=== PATIENT | male | born 1985 | race Caucasian/White ===

== ENCOUNTER 2022-11-24 13:34 | Emergency (ER) | payer MEDICAID, SELFPAY ==
[2022-11-24 13:45] VITALS: BP 134/85; PULSE 88; RESP 18; TEMP 37.1; O2SAT 100; BMI 32.3
--- NOTE | 2022-11-24 13:58 | EXP.UTC ---
Discharge Plan Disposition Patient Disposition: Home, Self-Care Condition: Good Prescriptions Prescriptions: New benzonatate [benzonatate] 100 mg capsule 100 mg PO TIDP PRN (Reason: Cough) Qty: 30 0RF ondansetron 4 mg Tablet,Disintegrating 4 mg PO Q8H PRN (Reason: Nausea) Qty: 12 0RF No Action buprenorphine-naloxone [Suboxone] 8-2 mg Tablet, Sublingual 2 tab SUBLINGUAL DAILY Mavyret 100-40 mg Tablet See Rx Instructions .ROUTE .COMPLEX Rx Instructions: 3 tab orally ;3 tabs daily for 8 weeks Referrals Follow up/Referrals: Provider,Referral, MD [Primary Care Provider] - See instructions Activity Restrictions/Add. Instructions Additional Instructions/Restrictions: Drink plenty of fluids. Take tylenol or ibuprofen for pain or fever. Take the medications as directed. Follow up with your regular doctor. GO TO THE ER FOR ANY WORSENING SYMPTOMS Clinical Impressions Clinical Impression: Acute viral syndrome Instructions Patient Instructions: Coronavirus Disease 2019, Preventing the Spread of Coronavirus Discharge Instructions Discharge ED Provider: Abe Wetzel [facility] General Stated complaint: congestion,headache,achey Time Seen by Provider: 11/24/22 13:58 History of Present Illness Provider Complaint: He states that for the past 2 days he has had chills, fever, malaise and congestion. Related Data Home Medications Medication Instructions Recorded Confirmed buprenorphine 8 mg-naloxone 2 mg 2 tab sublingual DAILY substance 11/24/22 11/24/22 sublingual tablet dependency glecaprevir 100 mg-pibrentasvir 40 See Rx Instructions .Route 11/24/22 11/24/22 mg tablet (Mavyret) .COMPLEX hep c treatment Previous Rx's Medication Instructions Recorded benzonatate 100 mg capsule 100 mg PO TIDP PRN Cough #30 caps 11/24/22 ondansetron 4 mg disintegrating 4 mg PO Q8H PRN Nausea #12 tabs 11/24/22 tablet Allergies Allergy/AdvReac Type Severity Reaction Status Date / Time No Known Allergies Allergy Verified 11/24/22 13:56 [facility] Disclaimer: The information contained in this section may have been updated after the patient was seen, as this information can be updated by other users. Social History Smoking Status: Never smoker alcohol intake: never current occupational status: unemployed Travel in the last 8 weeks: None ROS Obtained: Yes All systems reviewed & no additional complaints except as documented Constitutional Constitutional: Reports chills and Reports fever(s) Eyes Eyes: Denies eye discharge ENT Ears, Nose, Mouth, and Throat: Reports as per HPI Cardiovascular Cardiovascular: Denies chest pain Respiratory Respiratory: Denies chest congestion and Reports cough Gastrointestinal Gastrointestingal: Reports nausea; Denies abdominal pain, constipation, cramping, diarrhea or vomiting Musculoskeletal Musculoskeletal: Denies arthralgias Integumentary/Breasts Skin/Breast: Denies rash Neurologic Neurologic: Denies paresthesias Physical Exam General General appearance: alert and in no apparent distress Head Head exam: atraumatic, normocephalic and normal inspection Eye Eye exam: Present normal appearance, PERRL and EOMI ENT ENT exam: Present normal exam, normal oropharynx, mucous membranes moist, TM's normal bilaterally and normal external ear exam Neck Neck exam: Present normal inspection, full ROM and trachea midline; Absent meningismus or lymphadenopathy Chest Chest inspection: Present normal inspection and symmetric chest wall rise; Absent tenderness Respiratory Respiratory exam: Present normal lung sounds bilaterally; Absent respiratory distress Cardiovascular Cardiovascular exam: Present regular rate and normal rhythm; Absent JVD Abdominal Exam Abdominal exam: Present soft and normal bowel sounds; Absent distention, tenderness or guarding Extremities Exam Extremities exam: Present normal inspection, full ROM and normal capil
[2022-11-24 14:05] LABS: UTC Influenza A Antigen Negative (Negative)
[2022-11-24 14:06] LABS: UTC Influenza B Antigen Negative (Negative)
[2022-11-24 14:33] VITALS: BP 134/85; PULSE 88; RESP 18; TEMP 37.1; O2SAT 100
== END 2022-11-24 14:33 | disposition home or self-care (01) ==
PROVIDERS: Emergency Provider Nurse Practitioner Family
DX: U07.1 COVID-19 (principal); R50.9 Fever, unspecified; R53.81 Other malaise
CPT/HCPCS: 87804; 99204; 99212; G0463

== ENCOUNTER 2023-08-22 20:25 | Emergency (ER) | payer MEDICAID, SELFPAY ==
[2023-08-22 20:27] VITALS: BP 153/96; PULSE 124; RESP 20; TEMP 36.9; O2SAT 96; BMI 30.7
--- NOTE | 2023-08-22 20:50 | ECG_ITS ---
APPROVED REPORT Exam: Resting ECG HR:96 bpm ECG Measurements Heart Rate 96 AXES DC 157 P 67 QRSd 86 QRS 25 QT 326 T 39 QTc 379 Conclusion SINUS RHYTHM POSSIBLE LEFT ATRIAL ENLARGEMENT [-0.1mV P-WAVE IN V1/V2] LOW QRS VOLTAGE IN PRECORDIAL LEADS [QRS DEFLECTION < 1.0 mV IN CHEST LEADS] Electronically signed by : JOE FRAGOSO, 08/22/2023 22:52:39
--- NOTE | 2023-08-22 20:56 | HMH.EDGENADL ---
Discharge Plan Disposition Patient Disposition: Home, Self-Care Prescriptions Prescriptions: New clonidine HCl 0.1 mg tablet 0.1 mg PO Q8H PRN (Reason: withdrawal symptoms) Qty: 14 0RF ondansetron 4 mg tablet,disintegrating 4 mg PO Q8H PRN (Reason: nausea and vomiting) 4 Days Qty: 12 0RF naproxen 500 mg tablet 500 mg PO BID Qty: 20 0RF hydroxyzine HCl 25 mg tablet 25 mg PO Q8H PRN (Reason: anxiety) Qty: 12 0RF No Action buprenorphine-naloxone [Suboxone] 8-2 mg Tablet, Sublingual 2 tab SUBLINGUAL DAILY Mavyret 100-40 mg Tablet See Rx Instructions .ROUTE .COMPLEX Rx Instructions: 3 tab orally ;3 tabs daily for 8 weeks benzonatate [benzonatate] 100 mg capsule 100 mg PO TIDP PRN (Reason: Cough) Qty: 30 0RF ondansetron 4 mg Tablet,Disintegrating 4 mg PO Q8H PRN (Reason: Nausea) Qty: 12 0RF Referrals Follow up/Referrals: Provider,Referral, MD [Primary Care Provider] - See instructions Activity Restrictions/Add. Instructions Additional Instructions/Restrictions: You were evaluated in the ER today. Please spanish moss picker your prescriptions at the pharmacy and take them as needed for symptoms. You may also take Tylenol every 4-6 hours as needed for pain and bodyaches. Follow-up closely with primary care. Follow-up using the resources provided to you as well. Return to the emergency department for new or worsening symptoms. Clinical Impressions Clinical Impression: Opioid withdrawal Instructions Patient Instructions: DI for Drug or Alcohol Withdrawal Discharge ED Provider: Teresita Martinez General Adult HPI General Chief complaint: PAIN Stated complaint: possible withdrawl Time Seen by Provider: 08/22/23 20:31 Mode of Arrival: Ambulatory Source of Information: Patient Limitations: No Limitations Description of Symptoms (Recalled from ER Triage Doc. by RN): Pt. presented to ED with c/o withdrawl from Suboxone. Pt. states he has been on it fro 10 years. He quit 2 weeks ago cold turkey. Pt. states that he is not sleeping, not eatinf, vomiting. C/o feeling sore all over. and can't do this by himself. History of Present Illness HPI narrative: This patient is a 37-year-old male with a history of opioid dependence previously on Suboxone for 10 years presenting with concern for withdrawals from Suboxone. He states that he missed his appointment 2 weeks ago, and he decided to quit cold turkey because it was too difficult to maintain his appointments and he felt like it was controlling his life. He does not wish to be dependent on opioid medications anymore, but he has not been able to sleep, he had nausea and vomiting with poor appetite, and he has had generalized bodyaches that have made his symptoms too difficult to manage at home on his own. He comes in asking for help with medications to get him relief, but he does not want any further treatment with opioid medication such as Suboxone. Related Data Home Medications Medication Instructions Recorded Confirmed buprenorphine 8 mg-naloxone 2 mg 2 tab sublingual DAILY substance 11/24/22 11/24/22 sublingual tablet dependency glecaprevir 100 mg-pibrentasvir 40 See Rx Instructions .Route 11/24/22 11/24/22 mg tablet (Mavyret) .COMPLEX hep c treatment Previous Rx's Medication Instructions Recorded benzonatate 100 mg capsule 100 mg PO TIDP PRN Cough #30 caps 11/24/22 ondansetron 4 mg disintegrating 4 mg PO Q8H PRN Nausea #12 tabs 11/24/22 tablet clonidine HCl 0.1 mg tablet 0.1 mg PO Q8H PRN withdrawal 08/22/23 symptoms #14 tabs hydroxyzine HCl 25 mg tablet 25 mg PO Q8H PRN anxiety #12 tabs 08/22/23 naproxen 500 mg tablet 500 mg PO BID #20 tabs 08/22/23 ondansetron 4 mg disintegrating 4 mg PO Q8H PRN nausea and 08/22/23 tablet vomiting 4 days #12 tabs Allergies Allergy/AdvReac Type Severity Reaction Status Date / Time No Known Allergies Allergy Verified 11/24/22 13:56 [facility] Disclaimer: The information contained in this section may have been updated after the patient was seen, as this information can be updated by other users. Social History Smoking Status: Current every day smoker alcohol intake: never current occupational status: unemployed Travel in the last 8 weeks: None ROS Obtained: Yes All systems reviewed & no additional complaints except as documented Physical Exam General General appearance: alert, in no apparent distress and anxious Head Head exam: atraumatic and normocephalic Eye Eye exam: Present normal appearance, PERRL and EOMI ENT ENT exam: Present normal exam, normal oropharynx, mucous membranes moist and normal external ear exam Neck Neck exam: Present normal inspection, full ROM and trachea midline; Absent tenderness Chest Chest inspection: Present normal inspection and symmetric chest wall rise; Absent tenderness Respiratory Respiratory exam: Present normal lung sounds bilaterally; Absent respiratory distress, wheezes, stridor or accessory muscle use Cardiovascular Cardiovascular exam: Present normal rhythm, tachycardia and other (Tachycardic and hypertensive) Abdominal Exam Abdominal exam: Present soft; Absent distention, tenderness, guarding, rebound or rigidity Extremities Exam Extremities exam: Present normal inspection, full ROM and normal capillary refill; Absent tenderness or edema Back Exam Back exam: Present normal inspection and full ROM; Absent tenderness Neurological Exam Neurological exam: Present alert, oriented X3, CN II-XII intact and normal gait; Absent motor sensory deficit Psychiatric Psychiatric exam: Present anxious Skin Skin exam: Present warm and dry Medical Decision Making Medical Records Medical records reviewed: Yes I reviewed the patient's medical records. Pancho Inquiry Pt receiving controlled substance: No Vital Signs: 08/22/23 20:27 08/22/23 21:15 08/22/23 21:15 Temperature 98.4 F Temperature Source Oral Pulse Rate 104 H 99 H Pulse Rate [Right Radial] 124 H Respiratory Rate 20 18 Blood Pressure 116/72 116/72 Blood Pressure [Right Arm] 153/96 H Blood Pressure Mean [Right Arm] 115 Blood Pressure Source Automatic Cuff Blood Pressure Source [Right Arm] Automatic Cuff Blood Pressure Position Sitting Blood Pressure Position [Right Arm] Sitting 02 Sat by Pulse Oximetry 96 96 93 L Oxygen Delivery Method Room Air Room Air 08/22/23 21:44 Temperature 98 F Temperature Source Oral Pulse Rate 108 H Pulse Rate [Right Radial] Respiratory Rate 20 Blood Pressure 117/71 Blood Pressure [Right Arm] Blood Pressure Mean [Right Arm] Blood Pressure Source Automatic Cuff Blood Pressure Source [Right Arm] Blood Pressure Position Sitting Blood Pressure Position [Right Arm] 02 Sat by Pulse Oximetry Oxygen Delivery Method Room Air Lab Data Lab results reviewed: Yes I reviewed the patient's lab results. Orders (Tests/Meds): ED MEDICATIONS Discontinued Medications Generic Name Dose Route Start Last Admin Trade Name Freq PRN Reason Stop Dose Admin Acetaminophen 1,000 mg 08/22/23 20:46 08/22/23 21:08 Acetaminophen 500mg Tab PO 08/22/23 20:47 1,000 mg ONCE ONE Administration Buspirone HCl 5 mg 08/22/23 20:48 Buspirone Hcl 5 Mg Tablet PO 08/22/23 20:49 ONCE ONE Clonidine HCl 0.1 mg 08/22/23 20:46 08/22/23 21:08 Clonidine 0.1mg Tablet PO 08/22/23 20:47 0.1 mg ONCE ONE Administration Hydroxyzine Pamoate 25 mg 08/22/23 20:49 08/22/23 21:08 Hydroxyzine Pamoate 25mg Capsule PO 08/22/23 20:50 25 mg ONCE ONE Administration Ketorolac Tromethamine 30 mg 08/22/23 20:46 08/22/23 21:08 Ketorolac 30mg/Ml Vial IM 08/22/23 20:47 30 mg ONCE ONE Administration Ondansetron HCl 4 mg 08/22/23 20:46 08/22/23 21:08 Ondansetron 4mg Odt SL 08/22/23 20:47 4 mg ONCE ONE Administration ECG Data Tracing #1: I reviewed this ECG and interpreted as documented below: Sinus rhythm with a ventricular rate of [address] changes concerning for ischemia. Normal axis and intervals. ECG initial impression date: 08/22/23 ECG initial impression time: 20:54 Medical Decision Narrative: In summary, this patient is a 37-year-old male presenting to the Emergency Department for evaluation of difficulty sleeping, body aches, nausea, and poor appetite in the setting of Suboxone withdrawal. Differential diagnoses considered include but are not limited to opioid withdrawal, dehydration. Ruling out the most morbid conditions drove assessment. On multiple subsequent reassessments, the patient is resting comfortably. He appears to be more comfortable and heart rate has improved. Given this, I feel that he is appropriate for discharge home with close follow-up with his primary care provider. I also provided him with resources for outpatient follow-up for substance abuse and substance use disorders. He was given prescriptions for clonidine, Zofran, hydroxyzine, naproxen. He was given instructions for supportive management and strict return precautions. He was discharged after all questions were answered. Critical Care Critical Care Time Critical Care Time: No
[2023-08-22] MEDS: ONDANSETRON 4MG ODT 4 MG SL (21:08)
[2023-08-22] MEDS: ACETAMINOPHEN 500MG TAB 1000 MG PO (21:08)
[2023-08-22] MEDS: hydrOXYzine pamoate 25MG CAPSULE 25 MG PO (21:08)
[2023-08-22] MEDS: cloNIDine 0.1MG TABLET 0.100000000000000006 MG PO (21:08)
[2023-08-22] MEDS: KETOROLAC 30MG/ML VIAL 30 MG IM (21:08)
[2023-08-22 21:15] VITALS: BP 116/72; PULSE 104; PULSE 99; RESP 18; O2SAT 93; O2SAT 96
--- NOTE | 2023-08-22 21:40 | PC.NURSE ---
Pt has appointment with [facility] for friday @ 3:00 and pt mitchel has been faxed
[2023-08-22 21:44] VITALS: BP 117/71; PULSE 108; RESP 20; TEMP 36.6; O2SAT 95
== END 2023-08-22 21:47 | disposition home or self-care (01) ==
PROVIDERS: Emergency Provider Emergency Medicine
DX: F11.23 Opioid dependence with withdrawal (principal); F17.210 Nicotine dependence, cigarettes, uncomplicated; R11.2 Nausea with vomiting, unspecified; M79.18 Myalgia, other site
CPT/HCPCS: 93005; 96372; 99283

== ENCOUNTER 2023-09-23 20:15 | Observation (INO) | payer MEDICAID, SELFPAY ==
[2023-09-23 20:16] VITALS: BP 143/78; RESP 20; TEMP 36.9; O2SAT 98; BMI 32.1
[2023-09-23 20:25] VITALS: PULSE 94
--- NOTE | 2023-09-23 20:34 | CT_ITS ---
PROCEDURE INFORMATION: Exam: CT Abdomen And Pelvis With Contrast Exam date and time: 09/23/2023 9:01 PM Age: 37 years old Clinical indication: Abdominal pain; Additional info: Low back pain TECHNIQUE: Imaging protocol: Computed tomography of the abdomen and pelvis with contrast. Radiation optimization: All CT scans at this facility use at least one of these dose optimization techniques: automated exposure control; mA and/or kV adjustment per patient size (includes targeted exams where dose is matched to clinical indication); or iterative reconstruction. Contrast material: ISOVUE; Contrast volume: 75 ml; Contrast route: IV; COMPARISON: No relevant prior studies available. FINDINGS: Liver: Mild fatty infiltration of the liver along the falciform ligament. Gallbladder and biliary ducts: Normal. No calcified stones. No ductal dilation. Pancreas: Normal. No ductal dilation. Spleen: Splenomegaly. Adrenal glands: Normal. No mass. Kidneys and ureters: Normal. No hydronephrosis. Stomach and bowel: Bowel wall thickening of the small bowel and colon. Appendix: Unremarkable appendix. Intraperitoneal space: Unremarkable. No free air. No significant fluid collection. Vasculature: Unremarkable. No abdominal aortic aneurysm. Lymph nodes: Unremarkable. No enlarged lymph nodes. Urinary bladder: Unremarkable as visualized. Reproductive: Unremarkable as visualized. Bones/joints: Chronic pars defects of L5. Soft tissues: Unremarkable. IMPRESSION: Bowel wall thickening of the small bowel and colon. Enterocolitis would be most likely.
--- NOTE | 2023-09-23 20:35 | HMH.EDGENADL ---
Discharge Plan Disposition Patient Disposition: Admitted Condition: Serious Clinical Impressions Clinical Impression: Acute colitis Discharge ED Provider: Jimmy Bender General Adult HPI <FALLON Perkins - Last Filed: 09/23/23 22:15> General Chief complaint: PAIN Stated complaint: lower back pain Time Seen by Provider: 09/23/23 20:34 Mode of Arrival: Ambulatory Source of Information: Patient Limitations: No Limitations Description of Symptoms (Recalled from ER Triage Doc. by RN): Pt presents with lower back pain that began 2 hrs ago while trying to urinate. Pt rates pain 10/24 no hx kidney stones. History of Present Illness HPI narrative: Patient presents for evaluation of initially low back pain. On further investigation though patient has had nausea vomiting and multiple episodes of diarrhea prior to his low back pain. He denies chest pain fever chills hemoptysis hematochezia melena hematemesis hematuria. Related Data Home Medications Medication Instructions Recorded Confirmed buprenorphine 8 mg-naloxone 2 mg 2 tab sublingual DAILY substance 11/24/22 11/24/22 sublingual tablet dependency glecaprevir 100 mg-pibrentasvir 40 See Rx Instructions .Route 11/24/22 11/24/22 mg tablet (Mavyret) .COMPLEX hep c treatment Previous Rx's Medication Instructions Recorded benzonatate 100 mg capsule 100 mg PO TIDP PRN Cough #30 caps 11/24/22 ondansetron 4 mg disintegrating 4 mg PO Q8H PRN Nausea #12 tabs 11/24/22 tablet clonidine HCl 0.1 mg tablet 0.1 mg PO Q8H PRN withdrawal 08/22/23 symptoms #14 tabs hydroxyzine HCl 25 mg tablet 25 mg PO Q8H PRN anxiety #12 tabs 08/22/23 naproxen 500 mg tablet 500 mg PO BID #20 tabs 08/22/23 ondansetron 4 mg disintegrating 4 mg PO Q8H PRN nausea and 08/22/23 tablet vomiting 4 days #12 tabs Allergies Allergy/AdvReac Type Severity Reaction Status Date / Time No Known Allergies Allergy Verified 11/24/22 13:56 PFSH <FALLON Perkins - Last Filed: 09/23/23 22:15> PFS Disclaimer: The information contained in this section may have been updated after the patient was seen, as this information can be updated by other users. Social History Smoking Status: Current every day smoker alcohol intake: never current occupational status: unemployed Travel in the last 8 weeks: None <FALLON Perkins - Last Filed: 09/23/23 22:15> ROS Obtained: Yes Systems reviewed as appropriate & no additional complaints except as documented Physical Exam <FALLON Perkins - Last Filed: 09/23/23 22:15> General General appearance: alert and in no apparent distress Respiratory Respiratory exam: Present normal lung sounds bilaterally Cardiovascular Cardiovascular exam: Present regular rate, normal rhythm and normal heart sounds Abdominal Exam Abdominal exam: Present soft, tenderness (Some mild tenderness to palpation diffusely in the abdomen without rebound guarding or rigidity.) and normal bowel sounds; Absent guarding or rebound Extremities Exam Extremities exam: Present normal inspection and full ROM Back Exam Back exam: Present normal inspection, full ROM, tenderness, CVA tenderness (R) and CVA tenderness (L) Neurological Exam Neurological exam: Present alert and oriented X3 Medical Decision Making <FALLON Perkins - Last Filed: 09/23/23 22:15> Medical Records Medical records reviewed: Yes I reviewed the patient's medical records. [place] Inquiry Pt receiving controlled substance: No Vital Signs: 09/23/23 20:16 09/23/23 20:25 Temperature 98.4 F Temperature Source Oral Pulse Rate 94 H Respiratory Rate 20 Blood Pressure [Right Arm] 143/78 H Blood Pressure Mean [Right Arm] 99 Blood Pressure Source [Right Arm] Automatic Cuff 02 Sat by Pulse Oximetry 98 Oxygen Delivery Method Room Air Lab Data Lab Results 09/23/23 20:30: WBC 14.6 H, RBC 3.90 L, Hgb 12.5 L, Hct 36.7 L, MCV 94.2 H, MCH 32.0 H, MCHC 33.9, RDW 14.0, Plt Count 188, MPV 8.6, Neut % (Auto) 92.0 H, Lymph % (Auto) 3.5 L, [place] % (Auto) 4.1, Eos % (Auto) 0.3, Baso % (Auto) 0.2, Neut # (Auto) 13.4 H, Lymph # (Auto) 0.5 L, [place] # (Auto) 0.6, Eos # (Auto) 0.0, Baso # (Auto) 0.0, Total Counted 100, Neutrophils % (Manual) 89 H, Lymphocytes % (Manual) 9 L, Monocytes % (Manual) 2, Platelet Estimate Normal, RBC Morphology Normal, Sodium 140, Potassium 3.7, Chloride 110 H, Carbon Dioxide 22, Anion Gap 11.7, BUN 6 L, Creatinine 0.70, Estimated Creat Clear 215, Estimated GFR 128, Est GFR ( Amer) 154, Glucose 120 H, Calcium 9.6, Total Bilirubin 0.7, AST 37, ALT 39, Alkaline Phosphatase 47, Total Protein 7.6, Albumin 4.3, Globulin 3.3 H, Albumin/Globulin Ratio 1.3 09/23/23 21:15: Urine Color Yellow, Urine Appearance Clear, Urine pH 7.0, Ur Specific [place] 1.010, Urine Protein Negative, Urine Glucose (UA) Negative, Urine Ketones Negative, Urine Blood Negative, Urine Nitrate Negative, Urine Bilirubin Negative, Urine Urobilinogen 0.2, Ur Leukocyte Esterase Negative, Urine RBC None, Urine WBC None, Ur Squamous Epith Cells Occasional, Urine Bacteria None 09/23/23 20:30 09/23/23 20:30 Orders (Tests/Meds): ED MEDICATIONS Generic Name Dose Route Start Last Admin Trade Name Lyle PRN Reason Stop Dose Admin Hydromorphone HCl 0.5 mg 09/23/23 22:06 Hydromorphone 2mg/Ml Syringe IV 09/23/23 22:07 ONCE ONE Levofloxacin/Dextrose 750 mg in 150 mls @ 100 mls/hr 09/23/23 22:15 Levofloxacin 750mg/150ml Premix IV 10/03/23 22:14 Q24H TYRONE Metronidazole 500 mg in 100 mls @ 100 mls/hr 09/23/23 22:09 Flagyl 500mg/100ml Ivpb IV 09/23/23 23:08 ONCE ONE Metronidazole 500 mg in 100 mls @ 100 mls/hr 09/23/23 22:30 Flagyl 500mg/100ml Ivpb IV 10/03/23 22:29 Q12H TYRONE Levofloxacin/Dextrose 750 mg in 150 mls @ 100 mls/hr 09/24/23 17:00 Levofloxacin 750mg/150ml Premix IV 10/04/23 16:59 Q24H TYRONE Lactated Ringer's 1,000 mls @ 125 mls/hr 09/23/23 22:30 Lactated Ringer's 1000 Ml Bag IV 10/23/23 22:29 .Q8H TYRONE Ondansetron HCl 4 mg 09/23/23 22:20 Ondansetron 4mg/2ml Vial IV 10/23/23 22:19 Q6HP PRN Nausea Sodium Chloride 10 ml 09/23/23 21:14 09/23/23 21:15 Sodium Chloride 0.9% 10ml Syr (Rad Only) IV 10/23/23 21:13 10 ml NEEDED PRN Administration Maintain IV Site Sodium Chloride 10 ml 09/23/23 22:20 Sodium Chloride 0.9% 10ml Flush Syringe IV 10/23/23 22:19 NEEDED PRN Maintain IV Site Discontinued Medications Generic Name Dose Route Start Last Admin Trade Name Freq PRN Reason Stop Dose Admin Acetaminophen 1,000 mg 09/23/23 20:34 09/23/23 20:42 Acetaminophen 1,000mg/100ml Vial IV 09/23/23 20:35 1,000 mg ONCE ONE Administration Lactated Ringer's 1,000 mls @ 999 mls/hr 09/23/23 20:34 09/23/23 20:42 Lactated Ringer's 1000 Ml Bag IV 09/23/23 21:34 999 mls/hr .Q1H1M ONE Administration Iopamidol 75 ml 09/23/23 21:14 09/23/23 21:15 Iopamidol-370 (76%);100ml Bottle IV 09/23/23 21:15 75 ml ONCE ONE Administration Ketorolac Tromethamine 15 mg 09/23/23 20:34 09/23/23 20:42 Ketorolac 30mg/Ml Vial IV 09/23/23 20:35 15 mg ONCE ONE Administration ORDERS Category Date Time Status CT abdomen pelvis w con Stat Cat Scan 09/23/23 20:34 Completed CBC w/Auto Diff [Complete Blood Count Auto Diff] Stat Lab 09/23/23 20:30 Completed CMP [Comprehensive Metabolic Panel] Stat Lab 09/23/23 20:30 Completed Diarrhea 23 Panel, PCR Stat Lab 09/23/23 22:06 Ordered Lipase Stat Lab 09/23/23 20:30 Received UA [Urinalysis and Microscopic] Stat Lab 09/23/23 21:15 Completed Blood Culture Stat Micro 09/23/23 21:22 Received Medical Decision Narrative: In summary patient is a 37-year-old male who presents to the emergency department for evaluation of low back pain nausea vomiting diarrhea. Patient is normotensive and with a heart rate 94 satting at 98% on room air breathing 20 times a minute upon arrival, afebrile. Physical exam is remarkable for bilateral tenderness to percussion in the flank and diffuse mild abdominal tenderness with no focal epigastric tenderness. Differential diagnosis includes pyelonephritis versus kidney stone versus gastroenteritis versus pancreatitis etc. Initial workup will be conducted with hematologic labs urinalysis CT scan abdomen pelvis. Initial interventions include crystalloid bolus blood cultures Toradol Tylenol continuous pulse oximetry and cardiac monitoring. Initial workup reviewed by me shows sepsis without septic shock with a white count of approximately 15,000 with left shift my informal interpretation of his CT scan abdomen pelvis shows colitis confirmed with radiology.. Upon repeat evaluation patient is still intolerant of oral intake and pain has not responded well to the initial interventions. Given this I had a interact discussion with hospital medicine regarding patient management and he is admitted for further evaluation and care <Jimmy Bender MD - Last Filed: 09/23/23 22:24> Vital Signs: 09/23/23 20:16 09/23/23 20:25 Temperature 98.4 F Temperature Source Oral Pulse Rate 94 H Respiratory Rate 20 Blood Pressure [Right Arm] 143/78 H Blood Pressure Mean [Right Arm] 99 Blood Pressure Source [Right Arm] Automatic Cuff 02 Sat by Pulse Oximetry 98 Oxygen Delivery Method Room Air Lab Data Lab Results 09/23/23 20:30: WBC 14.6 H, RBC 3.90 L, Hgb 12.5 L, Hct 36.7 L, MCV 94.2 H, MCH 32.0 H, MCHC 33.9, RDW 14.0, Plt Count 188, MPV 8.6, Neut % (Auto) 92.0 H, Lymph % (Auto) 3.5 L, [place] % (Auto) 4.1, Eos % (Auto) 0.3, Baso % (Auto) 0.2, Neut # (Auto) 13.4 H, Lymph # (Auto) 0.5 L, [place] # (Auto) 0.6, Eos # (Auto) 0.0, Baso # (Auto) 0.0, Total Counted 100, Neutrophils % (Manual) 89 H, Lymphocytes % (Manual) 9 L, Monocytes % (Manual) 2, Platelet Estimate Normal, RBC Morphology Normal, Sodium 140, Potassium 3.7, Chloride 110 H, Carbon Dioxide 22, Anion Gap 11.7, BUN 6 L, Creatinine 0.70, Estimated Creat Clear 215, Estimated GFR 128, Est GFR ( Amer) 154, Glucose 120 H, Calcium 9.6, Total Bilirubin 0.7, AST 37, ALT 39, Alkaline Phosphatase 47, Total Protein 7.6, Albumin 4.3, Globulin 3.3 H, Albumin/Globulin Ratio 1.3 09/23/23 21:15: Urine Color Yellow, Urine Appearance Clear, Urine pH 7.0, Ur Specific [place] 1.010, Urine Protein Negative, Urine Glucose (UA) Negative, Urine Ketones Negative, Urine Blood Negative, Urine Nitrate Negative, Urine Bilirubin Negative, Urine Urobilinogen 0.2, Ur Leukocyte Esterase Negative, Urine RBC None, Urine WBC None, Ur Squamous Epith Cells Occasional, Urine Bacteria None Orders (Tests/Meds): ED MEDICATIONS Generic Name Dose Route Start Last Admin Trade Name Freq PRN Reason Stop Dose Admin Hydromorphone HCl 0.5 mg 09/23/23 22:06 Hydromorphone 2mg/Ml Syringe IV 09/23/23 22:07 ONCE ONE Levofloxacin/Dextrose 750 mg in 150 mls @ 100 mls/hr 09/23/23 22:15 Levofloxacin 750mg/150ml Premix IV 10/03/23 22:14 Q24H TYRONE Metronidazole 500 mg in 100 mls @ 100 mls/hr 09/23/23 22:09 Flagyl 500mg/100ml Ivpb IV 09/23/23 23:08 ONCE ONE Metronidazole 500 mg in 100 mls @ 100 mls/hr 09/23/23 22:30 Flagyl 500mg/100ml Ivpb IV 10/03/23 22:29 Q12H TYRONE Levofloxacin/Dextrose 750 mg in 150 mls @ 100 mls/hr 09/24/23 17:00 Levofloxacin 750mg/150ml Premix IV 10/04/23 16:59 Q24H TYRONE Lactated Ringer's 1,000 mls @ 125 mls/hr 09/23/23 22:30 Lactated Ringer's 1000 Ml Bag IV 10/23/23 22:29 .Q8H TYRONE Ondansetron HCl 4 mg 09/23/23 22:20 Ondansetron 4mg/2ml Vial IV 10/23/23 22:19 Q6HP PRN Nausea Sodium Chloride 10 ml 09/23/23 21:14 09/23/23 21:15 Sodium Chloride 0.9% 10ml Syr (Rad Only) IV 10/23/23 21:13 10 ml NEEDED PRN Administration Maintain IV Site Sodium Chloride 10 ml 09/23/23 22:20 Sodium Chloride 0.9% 10ml Flush Syringe IV 10/23/23 22:19 NEEDED PRN Maintain IV Site Discontinued Medications Generic Name Dose Route Start Last Admin Trade Name Lenq PRN Reason Stop Dose Admin Acetaminophen 1,000 mg 09/23/23 20:34 09/23/23 20:42 Acetaminophen 1,000mg/100ml Vial IV 09/23/23 20:35 1,000 mg ONCE ONE Administration Lactated Ringer's 1,000 mls @ 999 mls/hr 09/23/23 20:34 09/23/23 20:42 Lactated Ringer's 1000 Ml Bag IV 09/23/23 21:34 999 mls/hr .Q1H1M ONE Administration Iopamidol 75 ml 09/23/23 21:14 09/23/23 21:15 Iopamidol-370 (76%);100ml Bottle IV 09/23/23 21:15 75 ml ONCE ONE Administration Ketorolac Tromethamine 15 mg 09/23/23 20:34 09/23/23 20:42 Ketorolac 30mg/Ml Vial IV 09/23/23 20:35 15 mg ONCE ONE Administration ORDERS Category Date Time Status CT abdomen pelvis w con Stat Cat Scan 09/23/23 20:34 Completed CBC w/Auto Diff [Complete Blood Count Auto Diff] Stat Lab 09/23/23 20:30 Completed CMP [Comprehensive Metabolic Panel] Stat Lab 09/23/23 20:30 Completed Diarrhea 23 Panel, PCR Stat Lab 09/23/23 22:06 Ordered Lipase Stat Lab 09/23/23 20:30 Received UA [Urinalysis and Microscopic] Stat Lab 09/23/23 21:15 Completed Blood Culture Stat Micro 09/23/23 21:22 Received Medical Decision Narrative: In summary patient is a 37-year-old male who presents to the emergency department for evaluation of low back pain nausea vomiting diarrhea. Patient is normotensive and with a heart rate 94 satting at 98% on room air breathing 20 times a minute upon arrival, afebrile. Physical exam is remarkable for bilateral tenderness to percussion in the flank and diffuse mild abdominal tenderness with no focal epigastric tenderness. Differential diagnosis includes pyelonephritis versus kidney stone versus gastroenteritis versus pancreatitis etc. Initial workup will be conducted with hematologic labs urinalysis CT scan abdomen pelvis. Initial interventions include crystalloid bolus blood cultures Toradol Tylenol continuous pulse oximetry and cardiac monitoring. Initial workup reviewed by me shows sepsis without septic shock with a white count of approximately 15,000 with left shift my informal interpretation of his CT scan abdomen pelvis shows colitis confirmed with radiology.. Upon repeat evaluation patient is still intolerant of oral intake and pain has not responded well to the initial interventions. Given this I had a interact discussion with hospital medicine regarding patient management and he is admitted for further evaluation and care. I was consulted by the YAN, and we discussed the complexity of the problems being addressed. I approved the treatment and management plan for this patient's care in the emergency department, thus performing a substantive portion of the medical decision making. Jimmy Bender MD Critical Care <FALLON Perkins - Last Filed: 09/23/23 22:15> Critical Care Time Critical Care Time: No
[2023-09-23] MEDS: ACETAMINOPHEN 1,000MG/100ML VIAL 1000 MG IV (20:42)
[2023-09-23] MEDS: LACTATED RINGERS 1000ML 1,000 ML 999 ML IV (20:42)
[2023-09-23] MEDS: KETOROLAC 30MG/ML VIAL 15 MG IV (20:42)
[2023-09-23 20:43] LABS: Basophils % 0.2 % (0.1-2.0); Eosinophils % 0.3 % (0.1-12.0); Hematocrit 36.7 % (42.0-52.0); Hemoglobin 12.5 g/dL (14.1-18.0); Lymphocytes # 0.5 K/mm3 (0.7-4.5); Lymphocytes % 3.5 % (10-50); Mean Corpuscular HGB Conc 33.9 g/dL (31.8-35.4); Mean Corpuscular Volume 94.2 fl (80-94); Mean Platelet Volume 8.6 fl (7.4-10.4); Monocytes # 0.6 K/mm3 (0.1-1.0); Monocytes % 4.1 % (1.7-9.3); Neutrophils # 13.4 K/mm3 (1.8-7.8); Platelet Count 188 K/mm3 (142-424); White Blood Count 14.6 K/mm3 (4.8-10.8)
[2023-09-23 20:46] LABS: MANUAL DIFFERENTIAL MANUAL DIFFERENTIAL (MANUAL DIFF)
[2023-09-23 21:11] LABS: Alanine Aminotransferase 39 U/L (12-78); Albumin Level 4.3 g/dl (3.5-5.0); Albumin/Globulin Ratio 1.3 (1.1-1.8); Alkaline Phosphatase 47 U/L (38-126); Anion Gap 11.7 mEq/L (5-15); Aspartate Amino Transferase 37 U/L (17-59); Bilirubin,Total 0.7 mg/dl (0.2-1.3); Blood Urea Nitrogen 6 mg/dl (9-20); Calcium 9.6 mg/dl (8.4-10.2); Carbon Dioxide 22 mmol/L (22.0-30.0); Chloride 110 mmol/L (98-107); Creatinine Clearance Estimated 215 mL/min (50-200); Estimated Glomerular Filt Rate 128 ml/min (>60); GFR (African American) 154 ML/MIN (>60); Globulin 3.3 g/dL (1.3-3.2); Glucose 120 mg/dl (74-100); Potassium 3.7 mmoL/L (3.5-5.1); Sodium 140 mmol/L (136-145); Total Protein,Serum 7.6 g/dl (6.3-8.2)
[2023-09-23] MEDS: IOPAMIDOL-370 (76%);100ML BOTTLE 75 ML IV (21:15)
[2023-09-23] MEDS: SODIUM CHLORIDE 0.9% 10ML SYR (RAD ONLY) 10 ML IV (21:15)
[2023-09-23 21:18] LABS: Microscopic, Urine URINE MICROSCOPIC (MICROSCOPIC)
[2023-09-23 21:21] LABS: Appearance,Urine CLEAR (Clear); Bilirubin,Urine Negative (Negative); Blood, Urine Negative (Negative); Color,Urine YELLOW (Yellow); Glucose,Urine (UA) Negative (Negative); Ketones,Urine Negative (Negative); Leukocyte Esterase,Urine Negative (Negative); Nitrate,Urine Negative (Negative); Protein,Urine Negative (Negative); Urobilinogen,Urine 0.2 EU/dl (0.2)
[2023-09-23 21:30] LABS: Squamous Epithelial Cell,Urine Occasional #/hpf (0-5)
[2023-09-23 21:41] LABS: Lymphocytes % 9 % (10-50); Monocytes % 2 % (2-9); Neutrophils % 89 % (42-76); Platelet Estimate Normal; RBC Morphology Normal; Total Cells Counted 100
--- NOTE | 2023-09-23 22:17 | P.HP_ITS ---
History of Present Illness *Admission Date: 09/23/23 *Reason for visit:: Abdominal pain *History of present illness: Patient presents for evaluation of initially low back pain. On further investigation though patient has had nausea vomiting and multiple episodes of diarrhea prior to his low back pain. Initial concern was that it was due to a kidney stone however CT imaging negative for stone. Symptoms have been present for approximately 1 month. He has not been able to tolerate oral intake for the last few days. He states he has probably 4-5 bouts of watery diarrhea every single day. It is not worsened by food but happens all of the time. Nonbloody emesis and diarrhea. Patient recently stopped taking Suboxone and finished withdrawing from the medication. He quit cold turkey. 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 He is not currently using any drugs at this time. He denies chest pain fever chills hemoptysis hematochezia melena hematemesis hematuria. sepsis without septic shock with a white count of approximately 15, [address] scan abdomen pelvis shows colitis. Patient was given metronidazole and Levaquin in the emergency department. Started on lactated Ringer's and will admit to the floor. Patient having mild symptomatic improvement already. [facility] Disclaimer: The information contained in this section may have been updated after the patient was seen, as this information can be updated by other users. Social History Smoking Status: Current every day smoker alcohol intake: never current occupational status: unemployed Travel in the last 8 weeks: None Review of Systems Review of Systems Review of systems:: pertinent systems reviewed and negative unless documented below Meds Home Medications and Allergies Home Medications Medication Instructions Recorded Confirmed Type benzonatate 100 mg capsule 100 mg PO TIDP PRN Cough #30 caps 11/24/22 Rx buprenorphine 8 mg-naloxone 2 mg 2 tab sublingual DAILY substance 11/24/22 11/24/22 History sublingual tablet dependency glecaprevir 100 mg-pibrentasvir 40 See Rx Instructions .Route 11/24/22 11/24/22 History mg tablet (Mavyret) .COMPLEX hep c treatment ondansetron 4 mg disintegrating 4 mg PO Q8H PRN Nausea #12 tabs 11/24/22 Rx tablet clonidine HCl 0.1 mg tablet 0.1 mg PO Q8H PRN withdrawal 08/22/23 Rx symptoms #14 tabs hydroxyzine HCl 25 mg tablet 25 mg PO Q8H PRN anxiety #12 tabs 08/22/23 Rx naproxen 500 mg tablet 500 mg PO BID #20 tabs 08/22/23 Rx ondansetron 4 mg disintegrating 4 mg PO Q8H PRN nausea and 08/22/23 Rx tablet vomiting 4 days #12 tabs New Prescriptions to Start Prescriptions: Allergies Allergy/AdvReac Type Severity Reaction Status Date / Time No Known Allergies Allergy Verified 11/24/22 13:56 Exam Data for Last 24 hours Vital signs and Labs for Last 24 Hours: Temp Pulse Resp BP Pulse Ox O2 Del Method 98.4 F 94 H 20 143/78 H 98 Room Air 09/23/23 20:16 09/23/23 20:25 09/23/23 20:16 09/23/23 20:16 09/23/23 20:16 09/23/23 20:16 Laboratory Results - last 24 hr 09/23/23 20:30: WBC 14.6 H, RBC 3.90 L, Hgb 12.5 L, Hct 36.7 L, MCV 94.2 H, MCH 32.0 H, MCHC 33.9, RDW 14.0, Plt Count 188, MPV 8.6, Neut % (Auto) 92.0 H, Lymph % (Auto) 3.5 L, [place] % (Auto) 4.1, Eos % (Auto) 0.3, Baso % (Auto) 0.2, Neut # (Auto) 13.4 H, Lymph # (Auto) 0.5 L, [place] # (Auto) 0.6, Eos # (Auto) 0.0, Baso # (Auto) 0.0, Total Counted 100, Neutrophils % (Manual) 89 H, Lymphocytes % (Manual) 9 L, Monocytes % (Manual) 2, Platelet Estimate Normal, RBC Morphology Normal, Sodium 140, Potassium 3.7, Chloride 110 H, Carbon Dioxide 22, Anion Gap 11.7, BUN 6 L, Creatinine 0.70, Estimated Creat Clear 215, Estimated GFR 128, Est GFR ( Amer) 154, Glucose 120 H, Calcium 9.6, Total Bilirubin 0.7, AST 37, ALT 39, Alkaline Phosphatase 47, Total Protein 7.6, Albumin 4.3, Globulin 3.3 H, Albumin/Globulin Ratio 1.3 09/23/23 21:15: Urine Color Yellow, Urine Appearance Clear, Urine pH 7.0, Ur Specific [place] 1.010, Urine Protein Negative, Urine Glucose (UA) Negative, Urine Ketones Negative, Urine Blood Negative, Urine Nitrate Negative, Urine Bilirubin Negative, Urine Urobilinogen 0.2, Ur Leukocyte Esterase Negative, Urine RBC None, Urine WBC None, Ur Squamous Epith Cells Occasional, Urine Bacteria None I & O for Last 24 hours: Intake & Output 09/20/23 09/21/23 09/22/23 09/23/23 23:59 23:59 23:59 23:59 Weight 104.326 kg Constitutional Constitutional: no acute distress *Routine HEENT Exam Head: Present normocephalic Eye: Present EOMI and PERRL ENT: Present mucous membranes moist *Routine Neck Exam Neck: Present supple; Absent lymphadenopathy *Routine Respiratory Exam Respiratory: Present CTA bilaterally *Routine Cardiovascular Exam Cardiovascular: Present RRR *Routine Abdominal Exam Abdominal: Present soft and tenderness; Absent normoactive bowel sounds *Routine Rectal Exam Rectal:: deferred *Routine Genitalia Exam Genitalia:: deferred *Routine Extremities Exam Extremities: Absent cyanosis, clubbing or edema Routine Back/Spine/Pelvis Exam Back/Spine: Present CVA tenderness *Routine Skin Exam Skin: Present warm; Absent rash *Routine Neurological Exam Neurological: Present alert and oriented X3 Assessment and Plan *Assessment and plan (1) Acute colitis: Status: Acute Category: Medical Code(s): K52.9 - Noninfective gastroenteritis and colitis, unspecified Plan 37-year-old man admitted with acute colitis and inability to tolerate p.o. intake. Will continue antibiotics and supportive management Colitis sepsis without shock leukocytosis levaquin 750 iv q24 flagyl 500 q12 clear liquid diet advance as tolerated LR 125ml/hr follow upblood culture supportive management - antiemetics, paincontrol, antidiarrheal anemia - fe studies
[2023-09-23] MEDS: METRONIDAZ/SOD CHL 500 MG/100 ML PIGGYBACK 100 MG IV (22:19)
[2023-09-23] MEDS: HYDROMORPHONE 2MG/ML SYRINGE 0.5 MG IV (22:19)
--- NOTE | 2023-09-23 22:23 | PC.NURSE ---
Attempted report at current time. Nurse to call this RN back
--- NOTE | 2023-09-23 22:27 | PC.NURSE ---
Report called to JULISSA Deleon; Awaiting transport
[2023-09-23 22:30] LABS: Lipase 42 U/L (23-300)
[2023-09-23 22:37] VITALS: BP 106/72; PULSE 92; RESP 20; TEMP 36.8; O2SAT 98
--- NOTE | 2023-09-23 22:52 | PC.NURSE ---
Patient arrived to floor via wheelchair from ED at 22:45.
[2023-09-23 22:55] VITALS: BP 121/72; PULSE 68; RESP 18; TEMP 36.9; O2SAT 99; BMI 31.6
[2023-09-23] MEDS: LACTATED RINGERS 1000ML 1,000 ML 125 ML IV (23:18)
[2023-09-23] MEDS: LEVOFLOXACIN/D5W 750 MG/150 ML 750 MG/150 ML PIGGYBACK 100 MG IV (23:18)
[2023-09-23 23:24] VITALS: O2SAT 98
--- NOTE | 2023-09-23 23:28 | PC.NURSE ---
Pt states he does not take any medications at home.
--- NOTE | 2023-09-23 23:30 | PC.NURSE ---
RECEIVED PHONE REPORT FROM MELLISA POLANCO RN/ED NURSE AT [id number]. ARRIVED PER W/C AT 2250. PATIENT IS A 37 YO MALE WITH ADMISSION DIAGNOSIS ACUTE COLITIS.
[2023-09-24] MEDS: ACETAMINOPHEN 325MG TAB 650 MG PO ×2 (00:40→12:18)
[2023-09-24 03:58] LABS: Adenovirus F 40/41, stool Not Detected (NotDetected); Astrovirus Not Detected (NotDetected); Campylobacter Not Detected (NotDetected); Clostridium Difficile A/B, PCR Not Detected (NotDetected); Cryptosporidium Not Detected (NotDetected); Cyclospora Cayetanesis Not Detected (NotDetected); Entamoeba histolytica Not Detected (NotDetected); Enteroaggregative E coli Not Detected (NotDetected); Enterotoxigenic E coli Not Detected (NotDetected); Giardia lamblia Not Detected (NotDetected); Norovirus Not Detected (NotDetected); Plesimonas Shigalloides, PCR Not Detected (NotDetected); Rotavirus A Not Detected (NotDetected); Salmonella, PCR Not Detected (NotDetected); Sapovirus Not Detected (NotDetected); Shiga-like toxin E coli Not Detected (NotDetected); Shigella Enterovasive E coli Not Detected (NotDetected); Vibrio Cholerae Not Detected (NotDetected); Vibrio, PCR Not Detected (NotDetected); Yersinia Entercolitica, PCR Not Detected (NotDetected)
[2023-09-24 04:00] VITALS: BP 117/64; PULSE 60; RESP 18; TEMP 36.8; O2SAT 98; BMI 31.8
[2023-09-24 06:22] LABS: Basophils % 0.1 % (0.1-2.0); Eosinophils % 0.9 % (0.1-12.0); Hematocrit 33.3 % (42.0-52.0); Hemoglobin 11.3 g/dL (14.1-18.0); Lymphocytes # 1.2 K/mm3 (0.7-4.5); Lymphocytes % 25.2 % (10-50); Mean Corpuscular HGB Conc 33.9 g/dL (31.8-35.4); Mean Corpuscular Hemoglobin 31.2 pg (27.0-31.2); Mean Corpuscular Volume 91.8 fl (80-94); Mean Platelet Volume 8.4 fl (7.4-10.4); Monocytes # 0.3 K/mm3 (0.1-1.0); Monocytes % 6.2 % (1.7-9.3); Neutrophils # 3.3 K/mm3 (1.8-7.8); Neutrophils % 67.6 % (37.0-80.0); Platelet Count 172 K/mm3 (142-424); Red Blood Count 3.62 M/mm3 (4.60-6.20); Red Cell Distribution Width 14.2 % (11.5-17.5); White Blood Count 4.8 K/mm3 (4.8-10.8)
[2023-09-24 06:44] LABS: Lactic Acid 0.9 mmol/L (0.7-2.1)
[2023-09-24 06:47] LABS: Magnesium 1.8 mg/dl (1.6-2.3); Phosphorous 3.2 mg/dl (2.5-4.5)
[2023-09-24] MEDS: NICOTINE 14MG/24HRS PATCH 14 MG TD (07:47)
[2023-09-24] MEDS: LACTATED RINGERS 1000ML 1,000 ML 125 ML IV (07:47)
[2023-09-24 08:00] VITALS: BP 121/74; PULSE 66; RESP 18; TEMP 36.6; O2SAT 99
[2023-09-24] MEDS: METRONIDAZ/SOD CHL 500 MG/100 ML PIGGYBACK 100 MG IV ×2 (09:11→16:12)
[2023-09-24] MEDS: ENOXAPARIN 40MG/0.4ML SYRINGE 40 MG SQ (09:11)
[2023-09-24 09:27] LABS: Enteropathogenic E coli Detected (NotDetected)
[2023-09-24 09:27] LABS: Iron 75 ug/dL (49-181)
[2023-09-24 09:36] LABS: Total Iron Binding Capacity 268 ug/dL (261-462)
[2023-09-24 10:12] LABS: Ferritin 61.5 ng/ml (17.9-464)
[2023-09-24] MEDS: OXYCODONE 5MG W/APAP 325MG TABLET 1 EACH PO ×2 (13:08→18:15)
--- NOTE | 2023-09-24 13:36 | HMH.PTEV ---
Physical Therapy Evaluation Rehab PT IP Evaluation Start: 09/24/23 10:18 Freq: ONCE Status: Active Protocol: Document 09/24/23 13:33 EMILY (Rec: 09/24/23 13:36 EMILY [email or web address]) Subjective/History History History Pt is a 37y/o male who presents to [facility] for worsening back pain. Subjective Subjective Lives in a home with his family. IND with all ADLs and functional mobility prior to admission. No AD use. Pt demo'd safe and IND in-room ambulation. New diagnosis of cancer in past 12 No months? Rehab PT IP Eval Objective Appearance Patient Behavior Appropriate,Cooperative Patient Orientation Person,Place Difficulty following instructions none Speech Pattern Clear Ambulation Patient Able to Ambulate Yes Ambulation Observation IP General Gait Pattern Observation No Deviations/Normal Ambulation Distance (feet) 15 Ambulation Assistive Device None Ambulation Ability Independent Balance Ability to Arise Able, w/o using arms Sitting Balance Steady, safe Standing Balance Narrow stance w/o support Transfers Bed Transfer Ability Independent Sit to Stand Bed Transfer Ability Independent Rehab PT IP prob,goals,plan Problems Date of Evaluation: 09/24/23 Rehab Potential Rehab Potential Innapropriate for Skilled Therapy Discharge Plan PT Discharge Plan Pt not appropriate for skilled acute care PT at this time d/ t pt?s mobility being at baseline. Pt safe to d/c home when deemed medically necessary d/t current level of mobility, home set-up, and family support. Eval Complexity Eval Charge Codes 55159 - Low Complexity PHYSICIAN CERTIFICATION: I certify the specified therapy services for Abe Ruff are required, authorized, and reviewed every 30 days.
[2023-09-24 16:00] VITALS: BP 131/75; PULSE 59; RESP 17; TEMP 37; O2SAT 99
--- NOTE | 2023-09-24 16:19 | XR_ITS ---
PROCEDURE INFORMATION: Exam: XR Thoracic Spine Exam date and time: 09/24/2023 4:34 PM Age: 37 years old Clinical indication: Pain in thoracic spine; Additional info: Acute on chronic back pain TECHNIQUE: Imaging protocol: Radiologic exam of the thoracic spine. Views: 3 views. COMPARISON: CR XR THORACIC SPINE 3V 09/24/2023 4:34 PM FINDINGS: Bones/joints: No acute fracture. No bone lesions. Normal alignment. Disc spaces are well preserved. Soft tissues: No soft tissue masses. IMPRESSION: No acute findings in the thoracic spine.
--- NOTE | 2023-09-24 16:19 | XR_ITS ---
PROCEDURE INFORMATION: Exam: XR Lumbosacral Spine Exam date and time: 09/24/2023 4:34 PM Age: 37 years old Clinical indication: Low back pain; Additional info: Acute on chronic back pain TECHNIQUE: Imaging protocol: Radiologic exam of the lumbosacral spine. Views: 2 or 3 views. COMPARISON: CT ABDOMEN PELVIS W CON 09/23/2023 9:01 PM FINDINGS: Bones/joints: No acute fracture. No bone lesions. Normal alignment. Disc spaces are well preserved. Soft tissues: No soft tissue masses or calcifications. IMPRESSION: No acute findings in the lumbosacral spine.
--- NOTE | 2023-09-24 16:32 | EXP.ACUTE.PN ---
Subjective *Date: 09/24/23 *Time: 16:32 Interval history: Patient complains of back discomfort hurting worse than stomach discomfort. Stool culture positive for E. coli today. Patient willing to advance to bland diet today. States back discomfort 6/10, throbbing, hurts in L4/L5 distribution and center of back. States injury is acute but admits to injuring this area in the past. Medical Exam Vital signs and Labs for Last 24 Hours: Vital Signs Temp Pulse Pulse Resp BP BP Pulse Ox 09/24/23 16:00 98.6 F 59 L 17 131/75 99 09/24/23 15:00 09/24/23 13:00 09/24/23 11:00 09/24/23 09:00 09/24/23 08:00 09/24/23 08:00 97.9 F 66 18 121/74 99 09/24/23 06:41 09/24/23 05:00 09/24/23 04:00 98.3 F 60 18 117/64 98 09/24/23 03:00 09/24/23 01:00 09/23/23 23:24 98 09/23/23 23:00 09/23/23 22:55 98.5 F 68 18 121/72 99 09/23/23 22:37 98.3 F 92 H 20 106/72 L 09/23/23 20:25 94 H 09/23/23 20:16 98.4 F 20 143/78 H 98 O2 Del Method 09/24/23 16:00 Room Air 09/24/23 15:00 Room Air 09/24/23 13:00 Room Air 09/24/23 11:00 Room Air 09/24/23 09:00 Room Air 09/24/23 08:00 Room Air 09/24/23 08:00 Room Air 09/24/23 06:41 Room Air 09/24/23 05:00 Room Air 09/24/23 04:00 Room Air 09/24/23 03:00 Room Air 09/24/23 01:00 Room Air 09/23/23 23:24 Room Air 09/23/23 23:00 Room Air 09/23/23 22:55 Room Air 09/23/23 22:37 Room Air 09/23/23 20:25 09/23/23 20:16 Room Air Intake and Output 09/24/23 09/24/23 09/24/23 07:59 15:59 23:59 Intake Total 1312 / 7 735 / 2047 Output Total 0 / 0 Balance 1312046 735 / 2047 Intake: Intake, Oral Amount 702 / 1437 735 / 1437 Intake, Total IV Amount 610 / 610 Lactated Ringers 1000ML 1,000 360 / 360 ml @ 125 mls/hr IV .Q8H [facility] Rx# :[id number] Levofloxacin/D5w 750 mg/150 ml 150 / 150 750 mg In 150 ml @ 100 mls/hr IV Q24H [facility] Rx#:[id number] Metronidaz/Sod Chl 500 mg In 100 / 100 100 ml @ 100 mls/hr IV ONCE ONE Rx#:[id number] Output: Output, Urine Amount 0 / 0 Other: Number of Voids 2 Number of Unmeasured Voids 2 Weight 103.419 kg Patient Weight 09/24/23 23:59 Weight 103.419 kg Laboratory Results - last 24 hr 09/23/23 20:30: WBC 14.6 H, RBC 3.90 L, Hgb 12.5 L, Hct 36.7 L, MCV 94.2 H, MCH 32.0 H, MCHC 33.9, RDW 14.0, Plt Count 188, MPV 8.6, Neut % (Auto) 92.0 H, Lymph % (Auto) 3.5 L, [place] % (Auto) 4.1, Eos % (Auto) 0.3, Baso % (Auto) 0.2, Neut # (Auto) 13.4 H, Lymph # (Auto) 0.5 L, [place] # (Auto) 0.6, Eos # (Auto) 0.0, Baso # (Auto) 0.0, Total Counted 100, Neutrophils % (Manual) 89 H, Lymphocytes % (Manual) 9 L, Monocytes % (Manual) 2, Platelet Estimate Normal, RBC Morphology Normal, Sodium 140, Potassium 3.7, Chloride 110 H, Carbon Dioxide 22, Anion Gap 11.7, BUN 6 L, Creatinine 0.70, Estimated Creat Clear 215, Estimated GFR 128, Est GFR ( Amer) 154, Glucose 120 H, Calcium 9.6, Total Bilirubin 0.7, AST 37, ALT 39, Alkaline Phosphatase 47, Total Protein 7.6, Albumin 4.3, Globulin 3.3 H, Albumin/Globulin Ratio 1.3, Lipase 42 09/23/23 21:15: Urine Color Yellow, Urine Appearance Clear, Urine pH 7.0, Ur Specific [place] 1.010, Urine Protein Negative, Urine Glucose (UA) Negative, Urine Ketones Negative, Urine Blood Negative, Urine Nitrate Negative, Urine Bilirubin Negative, Urine Urobilinogen 0.2, Ur Leukocyte Esterase Negative, Urine RBC None, Urine WBC None, Ur Squamous Epith Cells Occasional, Urine Bacteria None 09/24/23 03:40: Stl Aeromonas (PCR) Not detected, Stl C. cayetanensis PCR Not detected, Stool Rotavirus (PCR) Not detected, Stl Adenov F 40/41 PCR Not detected, Stool Astrovirus (PCR) Not detected, Stool Campylobacter PCR Not detected, Stl C.difficile Tox PCR Not detected, Stool Cryptosporidium PCR Not detected, Stl E.coli Shiga Tox PCR Not detected, Stool E coli O157 PCR Not detected, Stl Enterotoxigenic E PCR Not detected, Stool EPEC (PCR) Detected A, Stool EAEC (PCR) Not detected, Stl E. histolytica PCR Not detected, Stool Giardia Lamblia PCR Not detected, Stool Salmonella PCR Not detected, Stool Sapovirus (PCR) Not detected, Stl P. shigelloides PCR Not detected, Stl Shigella/EIEC PCR Not detected, St Y.enterocolitica PCR Not detected, Stool Vibrio (PCR) Not detected, Stl Vibrio cholerae PCR Not detected, Stl Norovirus GI/GII PCR Not detected 09/24/23 05:44: WBC 4.8 D, RBC 3.62 L, Hgb 11.3 L, Hct 33.3 L, MCV 91.8, MCH 31.2, MCHC 33.9, RDW 14.2, Plt Count 172, MPV 8.4, Neut % (Auto) 67.6, Lymph % (Auto) 25.2, [place] % (Auto) 6.2, Eos % (Auto) 0.9, Baso % (Auto) 0.1, Neut # (Auto) 3.3, Lymph # (Auto) 1.2, [place] # (Auto) 0.3, Eos # (Auto) 0.0, Baso # (Auto) 0.0, Lactate 0.9, Phosphorus 3.2, Magnesium 1.8, Iron 75, TIBC 268, Iron Saturation 27.06955, Ferritin 61.5 I & O for Labs for Last 24 Hours: Intake & Output 09/21/23 09/22/23 09/23/23 09/24/23 23:59 23:59 23:59 23:59 Intake Total 2046 Output Total 0 / 0 Balance -1310 Weight 102.557 kg 103.419 kg Radiology Reports for the Last 24 Hours: Ordering Physician: Alessandro Dove Date of Service: 09/23/23 Procedure(s): CT abdomen pelvis w con Accession Number(s): [id number] cc: Marco Fu MD; Provider,Aroldo ESTRELLA; Alessandro Dove~ PROCEDURE INFORMATION: Exam: CT Abdomen And Pelvis With Contrast Exam date and time: 09/23/2023 9:01 PM Age: 37 years old Clinical indication: Abdominal pain; Additional info: Low back pain TECHNIQUE: Imaging protocol: Computed tomography of the abdomen and pelvis with contrast. Radiation optimization: All CT scans at this facility use at least one of these dose optimization techniques: automated exposure control; mA and/or kV adjustment per patient size (includes targeted exams where dose is matched to clinical indication); or iterative reconstruction. Contrast material: ISOVUE; Contrast volume: 75 ml; Contrast route: IV; COMPARISON: No relevant prior studies available. FINDINGS: Liver: Mild fatty infiltration of the liver along the falciform ligament. Gallbladder and biliary ducts: Normal. No calcified stones. No ductal dilation. Pancreas: Normal. No ductal dilation. Spleen: Splenomegaly. Adrenal glands: Normal. No mass. Kidneys and ureters: Normal. No hydronephrosis. Stomach and bowel: Bowel wall thickening of the small bowel and colon. Appendix: Unremarkable appendix. Intraperitoneal space: Unremarkable. No free air. No significant fluid collection. Vasculature: Unremarkable. No abdominal aortic aneurysm. Lymph nodes: Unremarkable. No enlarged lymph nodes. Urinary bladder: Unremarkable as visualized. Reproductive: Unremarkable as visualized. Bones/joints: Chronic pars defects of L5. Soft tissues: Unremarkable. IMPRESSION: Bowel wall thickening of the small bowel and colon. Enterocolitis would be most likely. Head: Present normocephalic and normal inspection ENT: Present normal exam and mucous membranes moist Neck: Present normal inspection Respiratory: Present CTA bilaterally and normal respiratory effort Cardiac: Present Reg Rate and Rhythm and Regular Rhythm GI: Present soft, tenderness, guarding and normal bowel sounds; Absent rebound or rigidity Extremities: Present normal inspection and normal capillary refill Skin: Present intact and warm Assessment and Plan *Assessment and plan (1) Acute colitis: Status: Acute Category: Medical Code(s): K52.9 - Noninfective gastroenteritis and colitis, unspecified (2) Back pain: Status: Acute Category: Medical Code(s): M54.9 - Dorsalgia, unspecified Plan Colitis secondary to E. coli: ? Stool culture positive for E. coli. On IV Flagyl/Levaquin. Will continue current therapy. As needed pain meds. Advance diet as tolerated. As of 09/23 patient advance to bland diet from clears. Acute on chronic lower back pain: ? Denies any recent injuries. X-ray thoracic/lumbar. PT OT. Scheduled methocarbamol. As needed Percocet/Motrin. Consult PT OT. Bradycardia: ? Occurs occasionally but patient asymptomatic. Will watch closely during hospitalization. Monitor on telemetry. PPx: Lovenox subcutaneous CODE STATUS full FEN 09/23 advance to bland diet. Disposition: ? Hopefully within 48 hours if patient's back pain fully explored and abdominals comfort under control. Patient also needs to be able to tolerate adequate p.o. intake before hospital disposition.
--- NOTE | 2023-09-24 18:40 | PC.NURSE ---
c/o pain x2 and treated both times per mar with relief. 1800, pt stated he was wanting to go home, family at bs telling pt to stay. pt has agreed to stay at this time. no issues.
[2023-09-24 20:00] VITALS: BP 125/68; PULSE 60; RESP 16; TEMP 36.3; O2SAT 99
--- NOTE | 2023-09-24 20:21 | EXP.DC.SUM ---
General Admission date:: 09/23/23 Discharge date: 09/24/23 HPI HPI HPI: Patient presents for evaluation of initially low back pain. On further investigation though patient has had nausea vomiting and multiple episodes of diarrhea prior to his low back pain. Initial concern was that it was due to a kidney stone however CT imaging negative for stone. Symptoms have been present for approximately 1 month. He has not been able to tolerate oral intake for the last few days. He states he has probably 4-5 bouts of watery diarrhea every single day. It is not worsened by food but happens all of the time. Nonbloody emesis and diarrhea. Patient recently stopped taking Suboxone and finished withdrawing from the medication. He quit cold turkey. 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 He is not currently using any drugs at this time. He denies chest pain fever chills hemoptysis hematochezia melena hematemesis hematuria. sepsis without septic shock with a white count of approximately 15,[address] scan abdomen pelvis shows colitis. Patient was given metronidazole and Levaquin in the emergency department. Started on lactated Ringer's and will admit to the floor. Patient having mild symptomatic improvement already. Hospital Course Hospital Course Hospital Course: Patient received 2 doses of antibiotics. Stool culture positive for E. coli. Back pain earlier in the morning however began to resolve by the end of the day. Patient tolerating full diet by the evening without nausea and a significant improvement in his diarrhea. Patient is requesting to go home given his significant symptomatic improvement, on evaluation patient is appropriate for discharge with normal laboratory and vital sign. He is tolerating full diet and ambulating freely. Discharged with 5 days of Levaquin for colitis. Will send home with Compazine and Imodium. Follow-up with primary care provider Exam Data for Last 24 hours Vital signs and Labs for Last 24 Hours: Temp Pulse Resp BP Pulse Ox O2 Del Method 98.6 F 59 L 17 131/75 99 Room Air 09/24/23 16:00 09/24/23 16:00 09/24/23 16:00 09/24/23 16:00 09/24/23 20:00 09/24/23 20:00 Laboratory Results - last 24 hr 09/23/23 20:30: WBC 14.6 H, RBC 3.90 L, Hgb 12.5 L, Hct 36.7 L, MCV 94.2 H, MCH 32.0 H, MCHC 33.9, RDW 14.0, Plt Count 188, MPV 8.6, Neut % (Auto) 92.0 H, Lymph % (Auto) 3.5 L, [place] % (Auto) 4.1, Eos % (Auto) 0.3, Baso % (Auto) 0.2, Neut # (Auto) 13.4 H, Lymph # (Auto) 0.5 L, [place] # (Auto) 0.6, Eos # (Auto) 0.0, Baso # (Auto) 0.0, Total Counted 100, Neutrophils % (Manual) 89 H, Lymphocytes % (Manual) 9 L, Monocytes % (Manual) 2, Platelet Estimate Normal, RBC Morphology Normal, Sodium 140, Potassium 3.7, Chloride 110 H, Carbon Dioxide 22, Anion Gap 11.7, BUN 6 L, Creatinine 0.70, Estimated Creat Clear 215, Estimated GFR 128, Est GFR ( Amer) 154, Glucose 120 H, Calcium 9.6, Total Bilirubin 0.7, AST 37, ALT 39, Alkaline Phosphatase 47, Total Protein 7.6, Albumin 4.3, Globulin 3.3 H, Albumin/Globulin Ratio 1.3, Lipase 42 09/23/23 21:15: Urine Color Yellow, Urine Appearance Clear, Urine pH 7.0, Ur Specific [place] 1.010, Urine Protein Negative, Urine Glucose (UA) Negative, Urine Ketones Negative, Urine Blood Negative, Urine Nitrate Negative, Urine Bilirubin Negative, Urine Urobilinogen 0.2, Ur Leukocyte Esterase Negative, Urine RBC None, Urine WBC None, Ur Squamous Epith Cells Occasional, Urine Bacteria None 09/24/23 03:40: Stl Aeromonas (PCR) Not detected, Stl C. cayetanensis PCR Not detected, Stool Rotavirus (PCR) Not detected, Stl Adenov F 40/41 PCR Not detected, Stool Astrovirus (PCR) Not detected, Stool Campylobacter PCR Not detected, Stl C.difficile Tox PCR Not detected, Stool Cryptosporidium PCR Not detected, Stl E.coli Shiga Tox PCR Not detected, Stool E coli O157 PCR Not detected, Stl Enterotoxigenic E PCR Not detected, Stool EPEC (PCR) Detected A, Stool EAEC (PCR) Not detected, Stl E. histolytica PCR Not detected, Stool Giardia Lamblia PCR Not detected, Stool Salmonella PCR Not detected, Stool Sapovirus (PCR) Not detected, Stl P. shigelloides PCR Not detected, Stl Shigella/EIEC PCR Not detected, St Y.enterocolitica PCR Not detected, Stool Vibrio (PCR) Not detected, Stl Vibrio cholerae PCR Not detected, Stl Norovirus GI/GII PCR Not detected 09/24/23 05:44: WBC 4.8 D, RBC 3.62 L, Hgb 11.3 L, Hct 33.3 L, MCV 91.8, MCH 31.2, MCHC 33.9, RDW 14.2, Plt Count 172, MPV 8.4, Neut % (Auto) 67.6, Lymph % (Auto) 25.2, [place] % (Auto) 6.2, Eos % (Auto) 0.9, Baso % (Auto) 0.1, Neut # (Auto) 3.3, Lymph # (Auto) 1.2, [place] # (Auto) 0.3, Eos # (Auto) 0.0, Baso # (Auto) 0.0, Lactate 0.9, Phosphorus 3.2, Magnesium 1.8, Iron 75, TIBC 268, Iron Saturation 27.95588, Ferritin 61.5 I & O for Last 24 hours: Intake & Output 09/21/23 09/22/23 09/23/23 09/24/23 23:59 23:59 23:59 23:59 Intake Total 2046 Output Total Balance -1310 Weight 102.557 kg 103.419 kg Constitutional Constitutional: no acute distress *Routine HEENT Exam Head: Present normocephalic Eye: Present EOMI and PERRL ENT: Present mucous membranes moist *Routine Neck Exam Neck: Present supple; Absent lymphadenopathy *Routine Respiratory Exam Respiratory: Present CTA bilaterally *Routine Cardiovascular Exam Cardiovascular: Present RRR *Routine Abdominal Exam Abdominal: Present soft and normoactive bowel sounds; Absent tenderness *Routine Extremities Exam Extremities: Absent cyanosis, clubbing or edema *Routine Skin Exam Skin: Present warm; Absent rash *Routine Neurological Exam Neurological: Present alert and oriented X3 Results Data Completed and Pending Labs on day of discharge: Labs from last 24 hours 09/24/23 09/24/23 09/23/23 05:44 03:40 21:15 WBC 4.8 D RBC 3.62 L Hgb 11.3 L Hct 33.3 L MCV 91.8 MCH 31.2 MCHC 33.9 RDW 14.2 Plt Count 172 MPV 8.4 Neut % (Auto) 67.6 Lymph % (Auto) 25.2 [place] % (Auto) 6.2 Eos % (Auto) 0.9 Baso % (Auto) 0.1 Neut # (Auto) 3.3 Lymph # (Auto) 1.2 [place] # (Auto) 0.3 Eos # (Auto) 0.0 Baso # (Auto) 0.0 Total Counted Neutrophils % (Manual) Lymphocytes % (Manual) Monocytes % (Manual) Platelet Estimate RBC Morphology Sodium Potassium Chloride Carbon Dioxide Anion Gap BUN Creatinine Estimated Creat Clear Estimated GFR Est GFR ( Amer) Glucose Lactate 0.9 Calcium Phosphorus 3.2 Magnesium 1.8 Iron 75 TIBC 268 Iron Saturation 27.05865 Ferritin 61.5 Total Bilirubin AST ALT Alkaline Phosphatase Total Protein Albumin Globulin Albumin/Globulin Ratio Lipase Urine Color Yellow Urine Appearance Clear Urine pH 7.0 Ur Specific [place] 1.010 Urine Protein Negative Urine Glucose (UA) Negative Urine Ketones Negative Urine Blood Negative Urine Nitrate Negative Urine Bilirubin Negative Urine Urobilinogen 0.2 Ur Leukocyte Esterase Negative Urine RBC None Urine WBC None Ur Squamous Epith Cells Occasional Urine Bacteria None Stl Aeromonas (PCR) Not detected Stl C. cayetanensis PCR Not detected Stool Rotavirus (PCR) Not detected Stl Adenov F 40/41 PCR Not detected Stool Astrovirus (PCR) Not detected Stool Campylobacter PCR Not detected Stl C.difficile Tox PCR Not detected Stool Cryptosporidium PCR Not detected Stl E.coli Shiga Tox PCR Not detected Stool E coli O157 PCR Not detected Stl Enterotoxigenic E PCR Not detected Stool EPEC (PCR) Detected A Stool EAEC (PCR) Not detected Stl E. histolytica PCR Not detected Stool Giardia Lamblia PCR Not detected Stool Salmonella PCR Not detected Stool Sapovirus (PCR) Not detected Stl P. shigelloides PCR Not detected Stl Shigella/EIEC PCR Not detected St Y.enterocolitica PCR Not detected Stool Vibrio (PCR) Not detected Stl Vibrio cholerae PCR Not detected Stl Norovirus GI/GII PCR Not detected 07/09/24 20:30 WBC 14.6 H RBC 3.90 L Hgb 12.5 L Hct 36.7 L MCV 94.2 H MCH 32.0 H MCHC 33.9 RDW 14.0 Plt Count 188 MPV 8.6 Neut % (Auto) 92.0 H Lymph % (Auto) 3.5 L [place] % (Auto) 4.1 Eos % (Auto) 0.3 Baso % (Auto) 0.2 Neut # (Auto) 13.4 H Lymph # (Auto) 0.5 L [place] # (Auto) 0.6 Eos # (Auto) 0.0 Baso # (Auto) 0.0 Total Counted 100 Neutrophils % (Manual) 89 H Lymphocytes % (Manual) 9 L Monocytes % (Manual) 2 Platelet Estimate Normal RBC Morphology Normal Sodium 140 Potassium 3.7 Chloride 110 H Carbon Dioxide 22 Anion Gap 11.7 BUN 6 L Creatinine 0.70 Estimated Creat Clear 215 Estimated GFR 128 Est GFR ( Amer) 154 Glucose 120 H Lactate Calcium 9.6 Phosphorus Magnesium Iron TIBC Iron Saturation Ferritin Total Bilirubin 0.7 AST 37 ALT 39 Alkaline Phosphatase 47 Total Protein 7.6 Albumin 4.3 Globulin 3.3 H Albumin/Globulin Ratio 1.3 Lipase 42 Urine Color Urine Appearance Urine pH Ur Specific [place] Urine Protein Urine Glucose (UA) Urine Ketones Urine Blood Urine Nitrate Urine Bilirubin Urine Urobilinogen Ur Leukocyte Esterase Urine RBC Urine WBC Ur Squamous Epith Cells Urine Bacteria Stl Aeromonas (PCR) Stl C. cayetanensis PCR Stool Rotavirus (PCR) Stl Adenov F 40/41 PCR Stool Astrovirus (PCR) Stool Campylobacter PCR Stl C.difficile Tox PCR Stool Cryptosporidium PCR Stl E.coli Shiga Tox PCR Stool E coli O157 PCR Stl Enterotoxigenic E PCR Stool EPEC (PCR) Stool EAEC (PCR) Stl E. histolytica PCR Stool Giardia Lamblia PCR Stool Salmonella PCR Stool Sapovirus (PCR) Stl P. shigelloides PCR Stl Shigella/EIEC PCR St Y.enterocolitica PCR Stool Vibrio (PCR) Stl Vibrio cholerae PCR Stl Norovirus GI/GII PCR DS: Diagnosis Discharge Diagnosis (1) Acute colitis: Status: Acute Code(s): K52.9 - Noninfective gastroenteritis and colitis, unspecified (2) Back pain: Status: Acute Code(s): M54.9 - Dorsalgia, unspecified Meds Home Medications and Allergies Home Medications Medication Instructions Recorded Confirmed Type levofloxacin 750 mg tablet 750 mg PO Q24H #5 tabs 09/24/23 Rx loperamide 2 mg capsule 2 mg PO NEEDED PRN Diarrhea 14 09/24/23 Rx days #14 caps prochlorperazine maleate 5 mg 5 mg PO BID PRN nausea and 09/24/23 Rx tablet (Compazine) vomiting #10 tabs New Prescriptions to Start Prescriptions: levofloxacin Kim Lundberg loperamide Kim Lundberg prochlorperazine maleate [Compazine] Kim Lundberg Allergies Allergy/AdvReac Type Severity Reaction Status Date / Time No Known Allergies Allergy Verified 11/24/22 13:56 Discharge Plan Disposition Patient Disposition: Home, Self-Care Condition: Serious Follow up Plan Prescriptions/Medication Reconciliation: New loperamide 2 mg Capsule 2 mg PO NEEDED PRN (Reason: Diarrhea) 14 Days Qty: 14 0RF levofloxacin 750 mg tablet 750 mg PO Q24H Qty: 5 0RF prochlorperazine maleate [Compazine] 5 mg tablet 5 mg PO BID PRN (Reason: nausea and vomiting) Qty: 10 0RF Problem Reconciliation Problems Reviewed?: Yes Patient Discharge Instructions ACTIVITY: Continue current activity DIET: continue same diet and advance to your usual diet Patient Instructions: DI for Colitis Providers Primary Care Provider: Provider,Referral Admit Provider: Juan Carlos Bentley Attending Provider: Juan Carlos Bentley
--- NOTE | 2023-09-24 20:51 | PC.NURSE ---
pt left floor at this time
--- NOTE | 2023-09-24 20:52 | PC.NURSE ---
2049 IV REMOVED. DISCHARGED IN CARE OF FAMILY MEMBER. ASSISTED TO PRIVATE VEHICLE IN W/C BY STAFF. ALL BELONGINGS WITH PATIENT.
--- NOTE | 2023-09-25 14:48 | SW/DCPLANNER ---
Follow up phone call: patient stated that she is doing well at home. Patient plans to make a follow up appointment w/ his PCP for the next 1-2 weeks. 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 Patient did not have any further needs/questions at this time.
== END 2023-09-24 20:50 | disposition home or self-care (01) ==
LOC: ER 22:15 → 2ND 22:16
PROVIDERS: Physician Assistant; Student in an Organized Health Care Education/Training Program; Admitting Provider Internal Medicine; Emergency Provider Emergency Medicine; Visit Provider Internal Medicine
DX: A04.4 Other intestinal Escherichia coli infections (principal); F17.210 Nicotine dependence, cigarettes, uncomplicated; Z79.899 Other long term (current) drug therapy
CPT/HCPCS: 72072; 72100; 74177; 80053; 81001; 82728; 83540; 83550; 83605; 83690; 83735; 84100; 85007; 85025; 87040; 87507; 97161; 99285; G0378; J0131; J1170; J1650; J1885; J1956; J7120; Q9967

== ENCOUNTER 2023-10-29 10:55 | Outpatient (CLI) | payer MEDICAID, SELFPAY ==
--- NOTE | 2023-10-29 10:58 | XR_ITS ---
FINAL REPORT CLINICAL HISTORY: knee pain FINDINGS: Left knee Three views were obtained. There is no acute fracture or dislocation. There are mild degenerative changes. No soft tissue abnormality is identified. IMPRESSION: No acute process. Reviewed, Interpreted and Dictated by Davi Seth III, MD Transcribed by Andree Colvin Authenticated and . [facility]
--- NOTE | 2023-10-29 10:58 | XR_ITS ---
FINAL REPORT CLINICAL HISTORY: chronic knee pain FINDINGS: Right knee Three views were obtained. There is no acute fracture or dislocation. The joint spaces appear normal. No soft tissue abnormality is identified. IMPRESSION: No acute process. Reviewed, Interpreted and Dictated by Davi Seth III, MD Transcribed by Andree Colvin Authenticated and [facility]
[2023-10-29 19:05] LABS: Alanine Aminotransferase 22 U/L (12-78); Albumin Level 3.8 g/dl (3.5-5.0); Albumin/Globulin Ratio 1.1 (1.1-1.8); Alkaline Phosphatase 50 U/L (38-126); Amylase 47 U/L (30-110); Anion Gap 9.4 mEq/L (5-15); Aspartate Amino Transferase 18 U/L (17-59); Bilirubin,Total 0.4 mg/dl (0.2-1.3); Blood Urea Nitrogen 16 mg/dl (9-20); Calcium 9.6 mg/dl (8.4-10.2); Carbon Dioxide 24 mmol/L (22.0-30.0); Chloride 111 mmol/L (98-107); Chol/HDL Ratio 7.2 (1-3.5); Cholesterol 186 mg/dl (140-200); Estimated Glomerular Filt Rate 109 ml/min (>60); GFR (African American) 132 ML/MIN (>60); Globulin 3.4 g/dL (1.3-3.2); Glucose 105 mg/dl (74-100); HDL Cholesterol 26 mg/dl (40-60); Lipase 187 U/L (23-300); Potassium 4.4 mmoL/L (3.5-5.1); Sodium 140 mmol/L (136-145); Total Protein,Serum 7.2 g/dl (6.3-8.2); Triglycerides 203 mg/dl (30-150); VLDL Cholesterol 41 mg/dL (0-40)
[2023-10-29 19:16] LABS: Direct LDL Cholesterol 109.69 mg/dL (100-129)
[2023-10-29 19:17] LABS: 25-OH Vitamin D, Total 33.4 ng/mL (30-100)
[2023-10-29 19:33] LABS: Thyroid Stimulating Hormone 0.68 uIU/mL (0.465-4.68)
[2023-10-29 19:50] LABS: Red Blood Count 4.06 M/mm3 (4.60-6.20); White Blood Count 5.9 K/mm3 (4.8-10.8)
[2023-10-29 19:51] LABS: Basophils % 0.5 % (0.1-2.0); Eosinophils # 0.1 K/mm3 (0.0-0.4); Eosinophils % 1.2 % (0.1-12.0); Hematocrit 39.2 % (42.0-52.0); Hemoglobin 12.6 g/dL (14.1-18.0); Lymphocytes # 1.9 K/mm3 (0.7-4.5); Lymphocytes % 31.7 % (10-50); Mean Corpuscular HGB Conc 32.2 g/dL (31.8-35.4); Mean Corpuscular Hemoglobin 31.1 pg (27.0-31.2); Mean Corpuscular Volume 96.5 fl (80-94); Mean Platelet Volume 10.4 fl (7.4-10.4); Monocytes # 0.3 K/mm3 (0.1-1.0); Monocytes % 5.1 % (1.7-9.3); Neutrophils # 3.5 K/mm3 (1.8-7.8); Neutrophils % 58.8 % (37.0-80.0); Platelet Count 231 K/mm3 (142-424); Red Cell Distribution Width 13.5 % (11.5-17.5)
== END 2023-10-29 23:59 | disposition home or self-care (01) ==
LOC: RAD 10:56
PROVIDERS: PCP Family Medicine; Visit Provider Family Medicine
DX: M25.569 Pain in unspecified knee (principal); G89.29 Other chronic pain; K52.9 Noninfective gastroenteritis and colitis, unspecified
CPT/HCPCS: 73562; 80050; 80053; 80061; 82150; 82306; 83690; 84443; 85025

== ENCOUNTER 2024-11-08 16:39 | Emergency (ER) | payer MEDICAID, SELFPAY ==
[2024-11-08 16:51] VITALS: BP 108/82; PULSE 86; RESP 18; TEMP 36.5; O2SAT 100; BMI 32.1
--- NOTE | 2024-11-08 16:57 | XR_ITS ---
PROCEDURE INFORMATION: Exam: XR Chest Exam date and time: 11/08/2024 5:12 PM Age: 39 years old Clinical indication: Other: Left flank pain TECHNIQUE: Imaging protocol: Radiologic exam of the chest. Views: 2 views. COMPARISON: CR XR CHEST 2V 11/08/2024 5:12 PM FINDINGS: Lungs: Unremarkable. No consolidation. Pleural spaces: Unremarkable. No pleural effusion. No pneumothorax. Heart/Mediastinum: Unremarkable. No cardiomegaly. Bones/joints: Unremarkable. IMPRESSION: No acute findings.
--- NOTE | 2024-11-08 16:57 | CT_ITS ---
PROCEDURE INFORMATION: Exam: CT Abdomen And Pelvis With Contrast Exam date and time: 11/08/2024 5:21 PM Age: 39 years old Clinical indication: Abdominal pain; Additional info: Left flank pain TECHNIQUE: Imaging protocol: Computed tomography of the abdomen and pelvis with contrast. Radiation optimization: All CT scans at this facility use at least one of these dose optimization techniques: automated exposure control; mA and/or kV adjustment per patient size (includes targeted exams where dose is matched to clinical indication); or iterative reconstruction. Contrast material: ISOVUE; Contrast volume: 75 ml; Contrast route: IV; COMPARISON: CT ABDOMEN PELVIS W CON 09/23/2023 9:01 PM FINDINGS: Liver: Normal. No mass. Gallbladder and biliary ducts: Normal. No calcified stones. No ductal dilation. Pancreas: Normal. No ductal dilation. Spleen: Normal. No splenomegaly. Adrenal glands: Normal. No mass. Kidneys and ureters: No evidence of renal stone or obstruction. Stomach and bowel: Unremarkable. No obstruction. No mucosal thickening. Appendix: No evidence of appendicitis. Intraperitoneal space: Unremarkable. No free air. No significant fluid collection. Vasculature: Unremarkable. No abdominal aortic aneurysm. Lymph nodes: Unremarkable. No enlarged lymph nodes. Urinary bladder: The bladder is decompressed but the bladder wall appears to be somewhat thickened. Reproductive: Unremarkable as visualized. Bones/joints: Unremarkable. No acute fracture. Soft tissues: Unremarkable. IMPRESSION: 1. Concentric bladder wall thickening possible cystitis, correlate with urinalysis. 2. No evidence of renal stone or obstruction.
[2024-11-08 17:14] LABS: Microscopic, Urine URINE MICROSCOPIC (MICROSCOPIC)
[2024-11-08 17:15] VITALS: BP 117/65; PULSE 81; O2SAT 99
[2024-11-08 17:16] LABS: Hematocrit 37.4 % (42.0-52.0); Hemoglobin 12.9 g/dL (14.1-18.0); Immature Granulocytes % 0.2 %; Mean Corpuscular HGB Conc 34.5 g/dL (31.8-35.4); Mean Corpuscular Hemoglobin 30.1 pg (27.0-31.2); Mean Corpuscular Volume 87.4 fl (80-94); Nucleated Red Blood Cells % 0 %; Platelet Count 209 K/mm3 (142-424); Red Blood Count 4.28 M/mm3 (4.60-6.20); Red Cell Distribution Width-SD 41.4 fL; White Blood Count 5.5 K/mm3 (4.8-10.8)
[2024-11-08 17:17] LABS: Bilirubin,Urine Negative (Negative); Color,Urine YELLOW (Yellow); Glucose,Urine (UA) Negative (Negative); Ketones,Urine Negative (Negative); Leukocyte Esterase,Urine Negative (Negative); PH,Urine 6.0 (5.0-8.5); Protein,Urine Negative (Negative); Specific Gravity, Urine >= 1.030 (1.005-1.030); Urobilinogen,Urine 0.2 EU/dl (0.2)
[2024-11-08] MEDS: SODIUM CHLORIDE 0.9% 10ML SYR (RAD ONLY) 10 ML IV (17:18)
[2024-11-08] MEDS: IOPAMIDOL-370 (76%);100ML BOTTLE 75 ML IV (17:18)
[2024-11-08 17:24] LABS: Albumin Level 4.5 g/dl (3.5-5.0); Chloride 109 mmol/L (98-107); Potassium 3.9 mmoL/L (3.5-5.1); Sodium 141 mmol/L (136-145)
[2024-11-08 17:27] LABS: Alanine Aminotransferase 32 U/L (12-78); Albumin/Globulin Ratio 1.3 (1.1-1.8); Alkaline Phosphatase 55 U/L (38-126); Anion Gap 12.9 mEq/L (5-15); Aspartate Amino Transferase 24 U/L (17-59); Bilirubin,Total 0.4 mg/dl (0.2-1.3); Blood Urea Nitrogen 8 mg/dl (9-20); Calcium 9.8 mg/dl (8.4-10.2); Carbon Dioxide 23 mmol/L (22.0-30.0); Creatinine Clearance Estimated 185 mL/min (50-200); Creatinine,Serum 0.80 mg/dl (0.66-1.25); Estimated Glomerular Filt Rate 108 ml/min (>60); GFR (African American) 131 ML/MIN (>60); Globulin 3.4 g/dL (1.3-3.2); Glucose 90 mg/dl (74-100); Lipase 66 U/L (23-300); Total Protein,Serum 7.9 g/dl (6.3-8.2)
[2024-11-08 17:31] VITALS: BP 143/91; PULSE 81; O2SAT 99
[2024-11-08 17:45] VITALS: BP 152/91; PULSE 73; O2SAT 98
[2024-11-08 17:58] LABS: Bacteria,Urine 1+ /lpf; Mucus,Urine 1+ /lpf; RBC,Urine Occasional #/hpf (0-3)
[2024-11-08 18:00] VITALS: BP 151/93; PULSE 73; O2SAT 98
--- NOTE | 2024-11-08 18:22 | HMH.EDGENADL ---
Discharge Plan Disposition Patient Disposition: Home, Self-Care Condition: Good Prescriptions Prescriptions: New lidocaine 5 % adhesive patch,medicated 1 patch topical DAILY Qty: 15 0RF Rx Instructions: leave on most painful area for up to 12 hrs methocarbamol 500 mg tablet 500 mg PO BID Qty: 60 0RF No Action Vraylar 1.5 mg capsule 1.5 mg PO DAILY Qty: 30 1RF amitriptyline 50 mg tablet 50 mg PO HS Qty: 30 2RF Referrals Follow up/Referrals: Bianca Ferguson APRN [Primary Care Provider, Family Practice] - See instructions Activity Restrictions/Add. Instructions Additional Instructions/Restrictions: You can take Tylenol and Motrin and I have sent you with a muscle relaxer as well as lidocaine patches we can use for your symptoms. Return to the emergency department for any acute or worsening symptoms Clinical Impressions Clinical Impression: Acute flank pain Stand Alone Forms Stand Alone Forms: Work/School Release Instructions Patient Instructions: DI for Urinary Tract Infection (UTI), DI for Urinary Tract Infection in Children Print Language Print Language: Citizen Of [place] Discharge ED Provider: Tanja Tong Adult HPI General Chief complaint: Urogenital-Male Stated complaint: lower back pain,difficulty peeing Time Seen by Provider: 11/08/24 16:42 Mode of Arrival: Ambulatory Source of Information: Patient and Relative Description of Symptoms (Recalled from ER Triage Doc. by RN): Pt states he has had radiating back pain for a little over a month now, but has recently developed urinary urgency. Pt reports some pain when urinating, but denies any blood in urine. Pt states he thinks the two could be related as he has a family history of kidney stones. Pt states the back pain starts mid back and radiates to the left side of his ribs. Pt states the pain comes and goes, and right now he feels okay. History of Present Illness HPI narrative: 89-year-old male with left-sided back pain and difficulty urinating. Patient has had some pain in the left lower leg. Patient states the pain remains in the left radiate. Patient has not had any fevers. Patient does report some urinary frequency. Patient denies any testicular pain or any sexual partners. Denies any dysuria. Denies any hematuria. Patient denies any prior surgeries. Related Data Previous Rx's ?Medication ?Instructions ?Recorded amitriptyline 50 mg tablet 50 mg PO HS #30 tabs 10/29/23 cariprazine 1.5 mg capsule 1.5 mg PO DAILY #30 caps 04/22/24 (Vraylar) lidocaine 5 % topical patch 1 patch topical DAILY #15 ea 11/08/24 methocarbamol 500 mg tablet 500 mg PO BID #60 tabs 11/08/24 Allergies Allergy/AdvReac Type Severity Reaction Status Date / Time No Known Allergies Allergy Verified 05/07/24 09:56 [facility] Disclaimer: The information contained in this section may have been updated after the patient was seen, as this information can be updated by other users. Medical History Mood disorder Left knee injury Drug abuse, IV Surgical History (Updated 04/22/24 @ 13:33 by Teresa Veras APRN) History of knee surgery Social History (Updated 04/22/24 @ 13:33 by Teresa Veras APRN) Smoking Status: Current every day smoker tobacco type: cigarettes packs per day: 1 second hand exposure: No alcohol intake: never counseling given: No substance use type: denies use counseling given: No current occupational status: unemployed Travel in the last 8 weeks?: None adopted: No caregiver/support person: No foster care: No household members: family housing: house lives independently: No marital status: single number of children: 2 number of grandchildren: 0 education level: other details: he went to the 9th grade; he did get his GED Hx Recent Travel: No (to [place]) caffeine: Yes physical activity: none working smoke detector in home: Yes fire extinguisher in home: Yes carbon monox detector in home: Yes firearms in home: No do you feel safe at home: Yes victim of physical abuse: No victim of emotional abuse: No victim of sexual abuse: No would you like helpful sources: No Other Medical History Have you received the Flu Vaccine for this season: No Have you received the Pneumonia Vaccine: No ROS Obtained: Yes All systems reviewed & no additional complaints except as documented and Yes Systems reviewed as appropriate & no additional complaints except as documented Physical Exam General General appearance: alert and in no apparent distress Head Head exam: atraumatic, normocephalic and normal inspection Eye Eye exam: Present normal appearance, PERRL and EOMI; Absent scleral icterus ENT ENT exam: Present normal exam and normal external ear exam Neck Neck exam: Present normal inspection and full ROM Chest Chest inspection: Present normal inspection and symmetric chest wall rise Respiratory Respiratory exam: Present normal lung sounds bilaterally; Absent respiratory distress or wheezes Cardiovascular Cardiovascular exam: Present regular rate, normal rhythm and normal heart sounds Abdominal Exam Abdominal exam: Present soft and distention; Absent tenderness, guarding or rebound Extremities Exam Extremities exam: Present normal inspection and full ROM Back Exam Back exam: Present normal inspection, full ROM and other (left sided back pain) Neurological Exam Neurological exam: Present alert and oriented X3 Psychiatric Psychiatric exam: Present normal affect and normal mood Skin Skin exam: Present warm and dry Medical Decision Making Medical Records Medical records reviewed: Yes I reviewed the patient's medical records. Screening: Per USPSTF and CDC recommendations, given the prevalence of disease in our region, it is our hospital?s policy to screen for HIV and viral Hepatitis for all patients aged 18 and over and those with ongoing risk factors. [place] Inquiry Pt receiving controlled substance: No Vital Signs: 11/08/24 16:51 11/08/24 17:15 11/08/24 17:31 Temperature 97.7 F Temperature Source Oral Pulse Rate 81 81 Pulse Rate [Radial] 86 Respiratory Rate 18 Blood Pressure 117/65 143/91 H Blood Pressure [Right Arm] 108/82 L Blood Pressure Mean 74 101 Blood Pressure Mean [Right Arm] 90 Blood Pressure Source Blood Pressure Source [Right Arm] Automatic Cuff Blood Pressure Position Blood Pressure Position [Right Arm] Sitting 02 Sat by Pulse Oximetry 100 99 99 Oxygen Delivery Method Room Air 11/08/24 17:45 11/08/24 18:00 11/08/24 18:47 Temperature 98.2 F Temperature Source Oral Pulse Rate 73 73 68 Pulse Rate [Radial] Respiratory Rate 18 Blood Pressure 152/91 H 151/93 H 128/77 Blood Pressure [Right Arm] Blood Pressure Mean 109 116 Blood Pressure Mean [Right Arm] Blood Pressure Source Automatic Cuff Blood Pressure Source [Right Arm] Blood Pressure Position Sitting Blood Pressure Position [Right Arm] 02 Sat by Pulse Oximetry 98 98 Oxygen Delivery Method Room Air Lab Data Lab results reviewed: Yes I reviewed the patient's lab results. Lab Results 11/08/24 16:50: Urine Color Yellow, Urine Appearance Clear, Urine pH 6.0, Ur Specific [place] >= 1.030, Urine Protein Negative, Urine Glucose (UA) Negative, Urine Ketones Negative, Urine Blood Negative, Urine Nitrate Negative, Urine Bilirubin Negative, Urine Urobilinogen 0.2, Ur Leukocyte Esterase Negative, Urine RBC Occasional, Urine WBC 10-20, Ur Squamous Epith Cells 3-5, Urine Bacteria 1+, Urine Mucus 1+ 11/08/24 17:00: WBC 5.5, RBC 4.28 L, Hgb 12.9 L, Hct 37.4 L, MCV 87.4, MCH 30.1, MCHC 34.5, RDW 13.2, Plt Count 209, MPV 9.8, Neut % (Auto) 55.1, Lymph % (Auto) 33.8, Cannon % (Auto) 9.4 H, Eos % (Auto) 1.3, Baso % (Auto) 0.2, Neut # (Auto) 3.0, Lymph # (Auto) 1.8, Cannon # (Auto) 0.5, Eos # (Auto) 0.1, Baso # (Auto) 0.0, Sodium 141, Potassium 3.9, Chloride 109 H, Carbon Dioxide 23, Anion Gap 12.9, BUN 8 L, Creatinine 0.80, Estimated Creat Clear 185, Estimated GFR 108, Est GFR ( Amer) 131, Glucose 90, Calcium 9.8, Total Bilirubin 0.4, AST 24, ALT 32, Alkaline Phosphatase 55, Total Protein 7.9, Albumin 4.5, Globulin 3.4 H, Albumin/Globulin Ratio 1.3, Lipase 66, HCV Ab ERIN w/Rflx PCR Qn Reactive, Hepatitis C Ab Note Comment, HCV Quantitation Hcv not detected, HCV RNA (PCR) IU log10 TNP, HIV Ag/Ab Combo Qual Negative 11/08/24 17:00 11/08/24 17:00 Orders (Tests/Meds): ED MEDICATIONS Discontinued Medications Generic Name Dose Route Start Last Admin Trade Name Freq PRN Reason Stop Dose Admin Iopamidol 75 ml 11/08/24 17:17 11/08/24 17:18 Iopamidol-370 (76%);100ml Bottle IV 11/08/24 17:18 75 ml ONCE ONE Administration Sodium Chloride 10 ml 11/08/24 17:17 11/08/24 17:18 Sodium Chloride 0.9% 10ml Syr (Rad Only) IV 11/08/24 17:18 10 ml ONCE ONE Administration ORDERS Category Date Time Status CT abdomen pelvis w con Stat Cat Scan 11/08/24 16:57 Completed CXR 2 view (NOT portable) [XR chest 2V] Stat Exams 11/08/24 16:57 Completed CBC w/Auto Diff [Complete Blood Count Auto Diff] Stat Lab 11/08/24 17:00 Completed CMP [Comprehensive Metabolic Panel] Stat Lab 11/08/24 17:00 Completed HCV RNA PCR, Quant Stat Lab 11/08/24 17:00 Completed HIV Combo Stat Lab 11/08/24 17:00 Completed Hepatitis C Ab Qual. W/ RFX Stat Lab 11/08/24 17:00 Completed Lipase Stat Lab 11/08/24 17:00 Completed UA [Urinalysis and Microscopic] Stat Lab 11/08/24 16:50 Completed Urine Culture Stat Micro 11/08/24 16:50 Completed Medical Decision Narrative: Patient is an otherwise healthy 39-year-old male who presents to the emergency department with left leg pain. On arrival, patient was hemodynamically stable with unremarkable vital signs. Differential includes but limited to: Nephrolithiasis, pyelonephritis, urinary tract infection, musculoskeletal pain, other abdominal pathology, amongst others. Labs were reviewed and interpreted by myself and showed: CBC with no leukocytosis, hemoglobin stable CMP was unremarkable. Lipase normal. UA showed no evidence of infection. CT scan showed no acute pathology. Patient was treated symptomatically in the emergency department. He was advised to use Tylenol, Motrin, Robaxin and lidocaine patches. Pain is likely skeletal in nature. Patient was discharged home in stable condition. Return precautions were discussed. Critical Care Critical Care Time Critical Care Time: No
--- NOTE | 2024-11-08 18:31 | PC.NURSE ---
pt provided warm blanket, updated on poc. call light within reach. no needs at this time. family at bedside
[2024-11-08 18:47] VITALS: BP 128/77; PULSE 68; RESP 18; TEMP 36.8; O2SAT 99
[2024-11-08 18:50] LABS: Hepatitis C Ab Qual. W/ RFX REACTIVE (Negative)
== END 2024-11-08 18:56 | disposition home or self-care (01) ==
PROVIDERS: Emergency Provider Student in an Organized Health Care Education/Training Program; PCP Family Medicine
DX: R10.9 Unspecified abdominal pain (principal)
CPT/HCPCS: 51798; 71046; 74177; 80053; 81001; 83690; 85025; 86803; 87086; 87389; 87522; 99284; Q9967